=== PATIENT | male | born 1985 | race Caucasian/White ===

== ENCOUNTER 2021-11-11 19:08 | Emergency (ER) | payer BC, SELFPAY ==
[2021-11-11 19:17] VITALS: BP 157/85; PULSE 85; RESP 16; TEMP 36.5; O2SAT 98
--- NOTE | 2021-11-11 19:43 | ED.GENADULT ---
HPI - General Adult General Chief complaint: Arrhythmia/Palpitations Stated complaint: HEART FLUTTERING/L EARACHE Time Seen by Provider: 11/11/21 19:44 Source: patient and RN notes reviewed Mode of arrival: ambulatory Limitations: no limitations History of Present Illness HPI narrative: 36-year-old male presents with multiple complaints. He reports left ear pain, decreased hearing for approximately a week. He denies rhinorrhea, nasal congestion, sore throat. Reports he has been using Debrox without relief. In a separate complaint he reports having fluttering in his chest on and off. He denies any associated chest pain, shortness of breath, syncope or near syncope. MD complaint: Left earache, heart palpitations Related Data Allergies Allergy/AdvReac Type Severity Reaction Status Date / Time No Known Allergies Allergy Mild Verified 05/28/15 22:13 Review of Systems Review of Systems: CONSTITUTIONAL: Denies malaise, chills, sweats, or fever. EYES: Denies visual changes, redness, or discharge. ENT: Denies rhinorrhea, congestion, sinus pain, or sore throat.. Reports left ear pain CARDIOVASCULAR: Denies chest pain or edema. Ports intermittent heart fluttering RESPIRATORY: Denies cough or dyspnea. SKIN: Denies rash or itching. MUSCULOSKELETAL: Denies back pain or myalgia. NEUROLOGIC: Denies numbness, weakness, or headache. All systems reviewed & are unremarkable except as noted in HPI and below PMFSH Comments At time of signature, agree with nursing past medical, surgical, social and family history. There is no relevant family history pertinent to the presenting complaint Exam Narrative: GENERAL: Well-appearing, well-nourished, and in no acute distress. HEAD: Normocephalic EYES: PERRLA, conjunctivae clear ENT: Nares clear. Mucous membranes moist. TM not visible due to excessive cerumen; left tragal tenderness. NECK: Supple. No lymphadenopathy CHEST: Clear to auscultation, breath sounds equal. No wheezing, rhonchi, rales, or stridor. No respiratory distress, speaks in full sentences. HEART: Regular rate and rhythm. No murmur heard. SKIN: Warm, dry, no rash. NEURO: Alert and oriented x3. PSYCH: Normal mood and affect Course Course Emergency Course: Patient is aware of diagnosis, understands and agrees to treatment plan. Anticipatory guidance given. Patient agrees to follow-up as directed and is aware of reasons to seek care at the emergency department. Portions of this record may have been created with voice recognition software Vital Signs Vital signs: Reviewed. Procedures Ear Wax Removal Left Ear: Ear Wax Removal Date: 11/11/21 Ear Wax Removal Time: 19:50 Cerumenolytic Used: 5-10% Sodium Bicarb solution Results: Re-examined: cerumen removed completely TM Examination: TM(s) erythematous Ear Canal Exam: atraumatic Patient Tolerated Procedure: well Complications: no problems Technique: ear canal irrigated and ear canal curetted Additional Comments: TM erythematous and bulging Medical Decision Making ECG Data EKG #1: ECG completion date: 11/11/21 ECG completion time: 19:45 Prior ECG tracings: available for review Interpretation: Rate 67, OR normal 167, QRS duration 109, QT 368, QTc 384 EKG Interpretation: normal rate and sinus rhythm Critical Care Time Critical Care Time Critical Care Time: No Discharge Plan Discharge Clinical Impression: Otitis media Qualifiers: Otitis media type: suppurative Chronicity: acute Laterality: left Recurrence: non-recurrent Spontaneous tympanic membrane rupture: without spontaneous rupture Qualified Code(s): H66.002 - Acute suppurative otitis media without spontaneous rupture of ear drum, left ear Cerumen impaction Qualifiers: Laterality: left Qualified Code(s): H61.22 - Impacted cerumen, left ear Patient Disposition: Home, Self-Care Condition: Stable Instructions: Ear Infection (GEN)
--- NOTE | 2021-11-11 19:55 | ECG_ITS ---
Measurements Intervals [place] Rate: 67 P: 55 [place]: 167 QRS: -14 QRSD: 109 T: 39 QT: 368 QTc: 390 Interpretive Statements SINUS RHYTHM DELAYED PRECORDIAL R/S TRANSITION BORDERLINE ECG Electronically Signed On 11-11-2021 21:55:43 [employer]IOR [employer]ULT[employer] by Tucker Winkler D.O.
--- NOTE | 2021-11-11 20:14 | PC.NURSE ---
Left ear irrigated by [facility] without difficulty.
== END 2021-11-11 20:15 | disposition home or self-care (01) ==
PROVIDERS: Emergency Provider Nurse Practitioner
DX: H66.002 Acute suppurative otitis media without spontaneous rupture of ear drum, left ear (principal); H61.22 Impacted cerumen, left ear
CPT/HCPCS: 69210; 93005; 99203; A9270; G0463

== ENCOUNTER 2022-01-29 19:23 | Emergency (ER) | payer BC, SELFPAY ==
[2022-01-29 19:25] VITALS: BP 135/81; PULSE 91; RESP 16; TEMP 36.8; O2SAT 98
--- NOTE | 2022-01-29 19:25 | ED.EAR ---
HPI - Ear Problem General Chief complaint: Ear Stated complaint: R EARACHE Time Seen by Provider: 01/29/22 19:30 Source: patient, RN notes reviewed and old records reviewed Mode of arrival: ambulatory History of Present Illness HPI Narrative: 36-year-old male who presents to [facility] with complaints of ear pain to his right ear with decreased hearing for the past 2 days. Patient denies any drainage from his ears. Patient states that he feels like he is a little off balance since his ear is so clogged . Patient denies any sinus congestion drainage or any cough or shortness of breath. Patient denies any fevers chills or sweats. MD Complaint: ear pain and decreased hearing Location: right ear Related Data Home Medications Medication Instructions Recorded Confirmed fenofibrate mg 01/29/22 Allergies Allergy/AdvReac Type Severity Reaction Status Date / Time No Known Allergies Allergy Mild Verified 01/29/22 19:25 Review of Systems Review of Systems: CONSTITUTIONAL: Denies fever, chills, or sweats. EYES: Denies visual changes, redness, or discharge. ENT: Denies rhinorrhea, congestion, sore throat,positive for right ear pain and feeling of ear being clogged with decreased hearing.. CARDIOVASCULAR: Denies chest pain, palpitations, or edema. RESPIRATORY: Denies cough or dyspnea. GASTROINTESTINAL: Denies abdominal pain, nausea, vomiting, or diarrhea. GENITOURINARY: Denies dysuria or hematuria. SKIN: Denies rash or itching. MUSCULOSKELETAL: Denies back pain, joint pain, or myalgia. NEUROLOGIC: Denies headache, numbness, or weakness. PSYCHIATRIC: Denies anxiety or depression. All systems reviewed & are unremarkable except as noted in HPI and below [facility] Past Medical History Medical History (Updated 01/29/22 @ 19:55 by Ne Isaacs NP) Dislocation of right knee Elevated cholesterol Social History Social History (Updated 01/29/22 @ 20:01 by Ne Isaacs NP) Smoking packs per day: 1 Smoking cigarettes per day: 20.0 Smoking status: Current every day smoker Alcohol intake: current Alcohol use details: rare social Substance use type: does not use Living arrangements: with family Gender identity (if verbalized by the patient): Male Comments At time of signature, agree with nursing past medical, surgical, social and family history. There is no relevant family history pertinent to the presenting complaint Exam Narrative: GENERAL: Well-appearing, well-nourished, and in no acute distress. HEAD: Normocephalic, atraumatic. EYES: PERRLA and EOMI. ENT: Nares clear, no rhinorrhea or epistaxis. Mucous membranes moist.TM's completely occluded with ear wax, after cleansing with peroxide and water irrigation large amount of wax removed from right ear with moderate amount from left ear, Right ear canal red and excoriated TM's intact without redness or bulging, throat pink with no lesions or exudates no tonsil enlargment NECK: Supple. no lymphadenopathy CHEST: Clear to auscultation. No respiratory distress.SAO2 98% on room air HEART: Regular rate and rhythm. No murmur heard. Normal peripheral pulses. ABDOMEN: Soft, nontender, nondistended, normal active bowel sounds. EXTREMITIES: Normal range of motion. No edema. SKIN: Warm, dry, no rash. NEURO: No focal deficits. Alert and oriented x3. Course Course Level of Care: Express Care Visit Procedures Ear Wax Removal Both Ears: Ear Wax Removal Date: 01/29/22 Ear Wax Removal Time: 19:35 Cerumenolytic Used: 5-10% Sodium Bicarb solution Results: Re-examined: cerumen removed completely TM Examination: TM(s) intact, normal appearance Ear Canal Exam: other (right ear canal red and irritated with no drainage noted) Patient Tolerated Procedure: well Complications: no problems Technique: ear canal irrigated Additional Comments: Patient tolerated bilateral irrigation of ears using 5 to 10% sodium bicarb solu
== END 2022-01-29 19:52 | disposition home or self-care (01) ==
PROVIDERS: Emergency Provider Registered Nurse
DX: H60.91 Unspecified otitis externa, right ear (principal); H61.23 Impacted cerumen, bilateral; F17.210 Nicotine dependence, cigarettes, uncomplicated; E78.00 Pure hypercholesterolemia, unspecified
CPT/HCPCS: 69209; 99213; G0463

== ENCOUNTER 2024-08-16 16:56 | Emergency (ER) | payer BC, SELFPAY ==
[2024-08-16 17:08] VITALS: BP 142/76; PULSE 86; RESP 18; TEMP 37; O2SAT 99
[2024-08-16 17:18] VITALS: BP 142/76; PULSE 86; RESP 18; TEMP 37; O2SAT 99
--- NOTE | 2024-08-16 17:31 | ED.EAR ---
HPI - Ear Problem General Chief complaint: Ear Stated complaint: right ear Time Seen by Provider: 08/16/24 17:15 Source: patient Mode of arrival: ambulatory Limitations: no limitations History of Present Illness HPI Narrative: 39 yo M presents with c/o decreased hearing, ear throbbing for the past several days. all systems reviewed and negative except as noted above. Related Data Home Medications Medication Instructions Recorded Confirmed fenofibrate 160 mg tablet 160 mg PO DAILY 01/29/22 08/16/24 mecobalamin (vitamin B12) 08/16/24 pyridoxine (vitamin B6) 08/16/24 Allergies Allergy/AdvReac Type Severity Reaction Status Date / Time No Known Allergies Allergy Mild Verified 08/16/24 17:02 Review of Systems Review of Systems: CONSTITUTIONAL: Denies fever, chills, or sweats. EYES: Denies visual changes, redness, or discharge. ENT: Denies rhinorrhea, congestion, sore throat . Reports decreased hearing and ear pain. CARDIOVASCULAR: Denies chest pain, palpitations, or edema. RESPIRATORY: Denies cough or dyspnea. GASTROINTESTINAL: Denies abdominal pain, nausea, vomiting, or diarrhea. GENITOURINARY: Denies dysuria or hematuria. SKIN: Denies rash or itching. MUSCULOSKELETAL: Denies back pain, joint pain, or myalgia. NEUROLOGIC: Denies headache, numbness, or weakness. PSYCHIATRIC: Denies anxiety or depression. All other systems reviewed are negative, except as documented in HPI. [facility] Past Medical History Medical History (Updated 08/16/24 @ 17:29 by Elaine Cr NP) Dislocation of right knee Elevated cholesterol Social History Social History (Updated 01/29/22 @ 20:01 by Ne Isaacs NP) Smoking packs per day: 1 Smoking cigarettes per day: 20.0 Smoking status: Current every day smoker Alcohol intake: current Alcohol use details: rare social Substance use type: does not use Living arrangements: with family Gender identity (if verbalized by the patient): Male Comments At time of signature, agree with nursing past medical, surgical, social and family history. There is no relevant family history pertinent to the presenting complaint. Exam Narrative: GENERAL: This is a well-nourished, well-developed patient, in no apparent distress. HEAD: normocephalic, atraumatic. EYES: PERRL. Sclera clear/white. Vision is grossly intact. EARS: External ears normal, Bilateral ear canals impacted with cerumen NOSE: External nose normal NECK: Neck supple, non-tender without lymphadenopathy, masses or thyromegaly. CARDIOVASCULAR: Regular rate and rhythm without murmurs, gallops, or rubs. RESPIRATORY: Clear to auscultation. Breath sounds equal bilaterally. No wheezes, rales, or rhonchi. SKIN: warm, Dry, intact with no suspicious lesions or rash, good texture and turgor. NEURO: awake, alert, and oriented to person, place and time. There were no obvious focal neurologic abnormalities. EXTREMITIES: No joint tenderness, effusion, or edema noted. Course Course Level of Care: Express Care Visit Reevaluation(s) Reevaluation #1: bilateral ear canals irrigated with warm water. No erythema swelling to urine canals. TMs normal without perforation. Vital Signs Vital signs: Vital Signs Temperature 37.0 C 08/16/24 17:08 Pulse Rate 86 08/16/24 17:08 Respiratory Rate 18 08/16/24 17:08 Blood Pressure 142/76 H 08/16/24 17:08 Pulse Oximetry 99 08/16/24 17:08 Oxygen Delivery Room Air 08/16/24 17:08 Temperature 37.0 C 08/16/24 17:18 Pulse Rate 86 08/16/24 17:18 Respiratory Rate 18 08/16/24 17:18 Blood Pressure 142/76 H 08/16/24 17:18 Pulse Oximetry 99 08/16/24 17:18 Oxygen Delivery Room Air 08/16/24 17:18 Procedures Ear Wax Removal Both Ears: Ear Wax Removal Date: 08/16/24 Ear Wax Removal Time: 17:20 Cerumenolytic Used: other ( Warm water) Results: Re-examined: cerumen removed completely TM Examination
== END 2024-08-16 17:32 | disposition home or self-care (01) ==
PROVIDERS: Emergency Provider Nurse Practitioner Family
DX: H61.23 Impacted cerumen, bilateral (principal); F17.210 Nicotine dependence, cigarettes, uncomplicated
CPT/HCPCS: 69210; 99213; G0463

== ENCOUNTER 2025-04-27 11:50 | Emergency (ER) | payer BC, SELFPAY ==
--- OUTSIDE RECORDS SUMMARY | 2025-04-27 11:52 | XMS_ITS | Data Portability ---
Author Organization [place] [employer], Main Office Address [address] [place] [id number] Care Team Providers Care National Sales Director Name Role Phone BOBO MCDONNELL Primary Care Provider Assessment Encounter Date Assessment Date Assessment LastModified by Organization Details LastModified Time 02/02/2023 02/02/2023 D/w pt about his findings and further plan of care. Meds as directed. OTC symptomatic Rx explained in detail. Very good liquid intake explained. Proper hand hygiene explained. Educated about alarming symptoms to monitor at home and call us back Or get checked in ED if any concerns. F/u as directed. [email or web address] Not available 02/02/2023 15:26:52 03/04/2023 03/04/2023 38 yo M with - WELL ADULT VISIT - B/L CERUMEN IMPACTION - FATIGUE - VIT B12 DEFICIENCY - ED - OBESITY III - SNORING; R/o OSMAN CXR: 03/01/23. D/w pt in detail about his findings, recent labs & imagines and further plan of care. Will do routine labs. Meds as directed. Diet and exercise explained in detail. Educated about options for him. Currently smoking about 1 ppd. Encouraged pt to cut down and quit it. Advised to do sleep study; but pt declined. HM: Flu - Pt declined. Tdap, Gardasil - At pharmacy/HD. F/u in 2 weeks. B/l ear flushing on next visit. Annual labs in 03/08. [email or web address] Not available 03/04/2023 10:52:35 03/25/2023 03/25/2023 38 yo M with - B/L CERUMEN IMPACTION - HTG, uncontrolled - FATIGUE - VIT D DEFICIENCY - VIT B12 DEFICIENCY - ED - OBESITY III - SNORING; R/o OSMAN Annual labs: 03/23/23. CXR: 03/01/23. D/w pt in detail about his findings, recent labs & imagines and further plan of care. We haven't got other lab results yet. Meds as directed. Risks Vs benefits of Aspirin 81mg po QOD with food explained. Pt agreed. Diet and exercise explained in detail. Educated about options for him. Currently smoking about 1 ppd. Encouraged pt to cut down and quit it. Advised to do sleep study; but pt declined. HM: Flu - Pt declined. Tdap, Gardasil - At pharmacy/HD. F/u in 3 months. B/l ear flushing on next visit. Lipids in 07/07. Annual labs in 03/08. [email or web address] Not available 03/25/2023 10:36:53 Plan of Treatment Reminders Order Date Submit Date Provider Last Modified By Organization Details Last Modified Time Details Appointments None recorded. Lab lipid panel, serum 2022 023 [email or web address] [facility] (Lab), [address] [place], [address], 3 08:33:49 testosteron e, free + total, serum 2022 023 [facility] (Lab), [address] [place], [address], 3 15:09:01 CMP, serum or plasma 2022 023 [facility] (Lab), [address] [place], [address], 3 14:05:27 CBC w/ auto diff 2022 023 [facility] (Lab), [address] [place], [address], 3 14:01:18 lipid panel, blood 2022 023 [email or web address] [facility] (Lab), [address] [place], [address], 3 09:00:01 TSH, serum, reflex free T4 [address] (Lab), [address] [place], [address], 3 09:00:20 PSA, serum or plasma [address] (Lab), [address] [place], [address], 3 09:00:36 urinalysis complete, reflex culture [address] (Lab), [address] [place], [address], 3 09:00:54 magnesium, serum or plasma 2022 023 [facility] (Lab), [address] [place], [address], 3 14:07:12 vitamin D, 25-hydroxy, total, serum [address] (Lab), [address] [place], [address], 3 09:01:12 glycohemogl obin, total, blood 2022 023 [facility] (Lab), [address] [place], [address], 3 17:43:51 vitamin B12 + folate, serum or blood [address] (Lab), [address] [place], [address], 3 12:02:19 Referral None recorded. Procedures None recorded. Surgeries None recorded. Imaging XR, chest, 2 view 2022 023 [facility], [address] [place] [address] , [place], [address], 3 17:00:27 Medication Orders fenofibrate 160 mg tablet 2022 023 [facility][id number], [address], [place], [place], [id number], 3 10:27:07 ergocalcife rol (vitamin D2) 1,250 mcg (50,000 unit) capsule 2022 023 [facility][id number], [address], [place], [id number], 3 10:27:06 nicotine 21 mg/24 hr daily transdermal patch 2022 023 [facility] #[id number], [address], [place], [place], [id number], 3 10:28:04 azithromyci n 250 mg tablet [address] [id number], [address], [place], [id number], 3 10:24:38 Medrol (Braxton) 4 mg tablets in a dose pack [address] [facility]126, [address], [place], [id number], 3 10:24:46 albuterol sulfate HFA 90 mcg/actuati on aerosol inhaler 2022 023 [facility][id number], [address], [place], [id number], 3 15:13:44 sildenafil 50 mg tablet 2022 023 [facility]59893, [address], [place], [place], [id number], 3 15:13:47 benzonatate 200 mg capsule 2022 023 [email or web address] [facility]64166, [address], [place], [place], [id number], 3 10:24:41 Patient TargetsNo targets recorded. Patient Instructions Encounter Date Encounter Id Patient Instructions Last Modified By Organization Details Last Modified Time 03/04/2023 [id number] When You Want to Lose Weight: Care Instructions [email or web address] Not available 03/04/2023 10:29:50 starting a weigh t loss plan: care instructions [email or web address] Not available 03/04/2023 10:29:50 03/25/2023 [id number] When You Want to Lose Weight: Care Instructions Not available 03/25/2023 10:22:31 starting a weigh t loss plan: care instructions [email or web address] Not available 03/25/2023 10:22:31 Reason for Referral None Reported. Results Created Date Observation Date Name Description Value Unit Range Abnormal Flag Note LastModifiedBy Organization Detail LastModifiedTime 09/17/2009/17/2022 urina lysis , dipst ick Leukocytes (reference range: negative tenzin/ l) Negati ve Not Available [facility] [address], [address], [address], 09/17/2022 12:03:57 09/17/2009/17/2022 urina lysis , dipst ick Nitrite (reference rage: negative mg/dl) negati ve Not Available [facility] [address], [address], [address], 09/17/2022 12:03:57 09/17/20 22 09/17/2022 urina lysis , dipst ick Urobilinogen (reference range: 0.2-1 mg/dl) 0.2 Not Available [address], [address], 09/17/2022 12:03:57 09/17/20 22 09/17/2022 urina lysis , dipst ick Protein (reference range: negative mg/dl) Negati ve Not Available [address], [address], 09/17/2022 12:03:57 09/17/20 22 09/17/2022 urina lysis , dipst ick pH (reference range: 5-7) 5.5 Not Available [address], [address], 09/17/2022 12:03:57 09/17/20 22 09/17/2022 urina lysis , dipst ick Blood (reference range: negative Sammy/ l) Negati ve Not Available [address], [address], 09/17/2022 12:03:57 09/17/20 22 09/17/2022 urina lysis , dipst ick Specific [place] (reference range: 1.005-1.030) 1.030 Not Available [address], [address], 09/17/2022 12:03:57 09/17/20 22 09/17/2022 urina lysis , dipst ick Ketone (reference range: negative mg/dl) Negati ve Not Available [facility] [address] [place] [address], [address], 09/17/2022 12:03:57 09/17/20 22 09/17/2022 urina lysis , dipst ick Bilirubin (reference range: negative mg/dl) Negati ve Not Available [address], [address], 09/17/2022 12:03:57 09/17/20 22 09/17/2022 urina lysis , dipst ick Glucose (reference range: negative mg/dl) Negati ve Not Available [address], [address], 09/17/2022 12:03:57 09/17/20 22 09/17/2022 urina lysis , dipst ick Appearance Clear Not Available [address], [address], 09/17/2022 12:03:57 09/17/20 22 09/17/2022 urina lysis , dipst ick Color Yellow Not Available [address], [address], 09/17/2022 12:03:57 03/23/20 23 03/23/2023 CBC/C OMPLE TE BLD COUNT W/DIF F white blood cells 10.6 x10'3 /uL 4.2-10 .8 Not Available [facility] ([facility]) [address] [place] [address], [address], 03/23/2023 14:01:18 05/0903/23/2023 CBC/C OMPLE TE BLD COUNT W/DIF F red blood cells 4.86 x10'6 /uL 4.10-5 .80 Not Available [facility] (Lab) [address] [place], [address], 03/23/2023 14:01:18 03/23/20 23 03/23/2023 CBC/C OMPLE TE BLD COUNT W/DIF F hemoglobin 14.4 g/dL 13.2-1 7.0 Not Available [facility] (Lab) [address] [place], [address], 03/23/2023 14:01:18 03/23/2003/23/2023 CBC/C OMPLE TE BLD COUNT W/DIF F hematocrit 42.7 % 39.3-5 0.0 Not Available [facility] (Lab) [address] [place], [address], 03/23/2023 14:01:18 03/23/2003/23/2023 CBC/C OMPLE TE BLD COUNT W/DIF F mean red cell volume 87.9 fL 80.0-9 7.0 Not Available [facility] (Lab) [address] [place], [address], 03/23/2023 14:01:18 03/23/2003/23/2023 CBC/C OMPLE TE BLD COUNT W/DIF F mean red cell hemoglobin 29.6 pg 27.0-3 3.0 Not Available [facility] (Lab) [address] [place], [address], 03/23/2023 14:01:18 03/23/2003/23/2023 CBC/C OMPLE TE BLD COUNT W/DIF F mean RBC HGB concentratio n 33.7 g/dL 31.0-3 6.0 Not Available [facility] (Lab) [address] [place], [address], 03/23/2023 14:01:18 03/23/20 23 03/23/2023 CBC/C OMPLE TE BLD COUNT W/DIF F red cell distribution width 12.5 % 11.8-1 5.5 Not Available [facility] (Lab) [address] [place], [address], 03/23/2023 14:01:18 03/23/20 23 03/23/2023 CBC/C OMPLE TE BLD COUNT W/DIF F platelets 253 x10'3 /uL 150-40 0 Not Available [facility] (Lab) [address] [place], [address], 03/23/2023 14:01:18 03/23/2003/23/2023 CBC/C OMPLE TE BLD COUNT W/DIF F mean platelet volume 11.2 fL 9.0-12 .4 Not Available [facility] (Lab) [address] [place], [address], 03/23/2023 14:01:18 03/23/2003/23/2023 CBC/C OMPLE TE BLD COUNT W/DIF F neutrophils 57.3 % 39.0-7 2.0 Not Available [facility] (Lab) [address] [place], [address], 03/23/2023 14:01:18 03/23/2003/23/2023 CBC/C OMPLE TE BLD COUNT W/DIF F lymphocytes 31.6 % 16.0-4 7.0 Not Available [facility] (Lab) [address] [place], [address], 03/23/2023 14:01:18 03/23/2003/23/2023 CBC/C OMPLE TE BLD COUNT W/DIF F monocytes 10.0 % 5.0-12 .0 Not Available [facility] (Lab) [address] [place], [address], 03/23/2023 14:01:18 03/23/20 23 03/23/2023 CBC/C OMPLE TE BLD COUNT W/DIF F eosinophils 0.1 % 1.0-7. 0 low Not Available [facility] (Lab) [address] [place], [address], 03/23/2023 14:01:18 03/23/20 23 03/23/2023 CBC/C OMPLE TE BLD COUNT W/DIF F basophils 0.2 % 0.0-2. 0 Not Available [facility] (Lab) [address] [place], [address], 03/23/2023 14:01:18 03/23/2003/23/2023 CBC/C OMPLE TE BLD COUNT W/DIF F immature granulocytes 0.8 % 0.00-0 .50 high Not Available [facility] (Lab) [address] [place], [address], 03/23/2023 14:01:18 03/23/20 23 03/23/2023 CBC/C OMPLE TE BLD COUNT W/DIF F neutrophils, absolute count 6.07 x10'3 /uL 1.5-8. 0 Not Available [facility] (Lab) [address] [place], [address], 03/23/2023 14:01:18 03/23/2003/23/2023 CBC/C OMPLE TE BLD COUNT W/DIF F lymphocytes, absolute count 3.34 x10'3 /uL 1.07-3 .43 Not Available [facility] (Lab) [address] [place], [address], 03/23/2023 14:01:18 03/23/2003/23/2023 CBC/C OMPLE TE BLD COUNT W/DIF F monocytes, absolute count 1.06 x10'3 /uL 0.29-0 .99 high Not Available [facility] (Lab) [address] [place], [address], 03/23/2023 14:01:18 03/23/20 23 03/23/2023 CBC/C OMPLE TE BLD COUNT W/DIF F eosinophils, absolute count 0.01 x10'3 /uL 0.02-0 .53 low Not Available [facility] (Lab) [address] [place], [address], 03/23/2023 14:01:18 03/23/20 23 03/23/2023 CBC/C OMPLE TE BLD COUNT W/DIF F basophils, absolute count 0.02 x10'3 /uL 0.01-0 .08 Not Available [facility] (Lab) [address] [place], [address], 03/23/2023 14:01:18 03/23/20 23 03/23/2023 CBC/C OMPLE TE BLD COUNT W/DIF F immature granulocytes ,absolute 0.08 x10'3 /uL 0.00-0 .05 high Not Available [facility] (Lab) [address] [place], [address], 03/23/2023 14:01:18 03/23/20 23 03/23/2023 CBC/C OMPLE TE BLD COUNT W/DIF F nucleated red blood cells 0.0 % -0 Not Available [facility] (Lab) [address] [place], [address], 03/23/2023 14:01:18 03/23/20 23 03/23/2023 CBC/C OMPLE TE BLD COUNT W/DIF F NRBC# 0.00 x10'3 /uL Not Available [facility] (Lab) [address] [place], [address], 03/23/2023 14:01:18 03/23/20 23 03/23/2023 COMPR EHENS GREG METAB OLIC PANEL sodium 136 mmol/ L 137-14 5 low Not Available [facility] (Lab) [address] [place], [address], 03/23/2023 14:05:26 03/23/20 23 03/23/2023 COMPR EHENS GREG METAB OLIC PANEL potassium 4.5 mmol/ L 3.5-5. 1 Not Available [facility] (Lab) [address] [place], [address], 03/23/2023 14:05:26 03/23/20 23 03/23/2023 COMPR EHENS GREG METAB OLIC PANEL chloride 104 mmol/ L 98-107 Not Available [facility] (Lab) [address] [facility] [place], [address], 03/23/2023 14:05:26 03/23/20 23 03/23/2023 COMPR EHENS GREG METAB OLIC PANEL carbon dioxide 20 mmol/ L 22-30 low Not Available [facility] (Lab) [address] [place], [address], 03/23/2023 14:05:26 03/23/20 23 03/23/2023 COMPR EHENS GREG METAB OLIC PANEL anion gap 16.5 mmol/ L 14-22 Not Available [facility] (Lab) [address] [place], [address], 03/23/2023 14:05:26 03/23/20 23 03/23/2023 COMPR EHENS GREG METAB OLIC PANEL glucose 106 mg/dL 70-99 high Not Available [facility] (Lab) [address] [place], [address], 03/23/2023 14:05:26 03/23/20 23 03/23/2023 COMPR EHENS GREG METAB OLIC PANEL BUN 9 mg/dL 8-19 Not Available [facility] (Lab) [address] [place], [address], 03/23/2023 14:05:26 03/23/20 23 03/23/2023 COMPR EHENS RGEG METAB OLIC PANEL creatinine 0.62 mg/dL 0.66-1 .25 low Not Available [facility] (Lab) [address] [place], [address], 03/23/2023 14:05:26 03/23/20 23 03/23/2023 COMPR EHENS GREG METAB OLIC PANEL GFR >60 Refer ence Range : [place] ge GFR Healt hy Adult : >60 mL/mi n/1.7 3 m2 Chron ic Kidne y Disea se: 15-60 mL/mi n/1.7 3 m2 Kidne y Failu re: <15/m L/min /1.73 m2 www.n iddk. nih.g ov The MDRD study equat ion has not been valid ated in child calista <18 years of age; pregn ant women ; the elder ly >85 years of age; or in some racia l or ethni c subgr oups, such as Hisnj nics. Outsi de the valid ated erin eters , estim ated GFR is less accur ate, requi ring clini nadira judgm ent on a case- by-ca se basis . Clini nadira inter preta tion for other races and ages must be made by the clini foreign. The MDRD study equat ion has not been valid ated for the evalu ation of serum creat inine relat ed to nutri allen l statu s or medic ation usage . For perso ns <18 years of age, a pedia tric GFR calcu lator is avail able on the [facility] websi te: https ://ww w.kid suzanne.o rg/pr ofess ional s/kdo qi/gf r_cal culat or Not Available [facility] (Lab) [address] [place], [address], 03/23/2023 14:05:26 03/23/20 23 03/23/2023 COMPR EHENS GREG METAB OLIC PANEL alkaline phosphatase 62 U/L 38-[address] [facility] (Lab) [address] [place], [address], 03/23/2023 14:05:26 03/23/20 23 03/23/2023 COMPR EHENS GREG METAB OLIC PANEL alanine aminotransfe rase 29 U/L 0-50 Not Available [facility] (Lab) [address] [place], [address], 03/23/2023 14:05:26 03/23/20 23 03/23/2023 COMPR EHENS GREG METAB OLIC PANEL aspartate aminotransfe rase 30 U/L 15-46 Not Available [facility] (Lab) [address] [place], [address], 03/23/2023 14:05:26 03/23/20 23 03/23/2023 COMPR EHENS GREG METAB OLIC PANEL bilirubin, total 0.70 mg/dL 0.20-1 .30 Not Available [facility] (Lab) [address] [place], [address], 03/23/2023 14:05:26 03/23/20 23 03/23/2023 COMPR EHENS GREG METAB OLIC PANEL calcium 9.4 mg/dL 8.4-10 .2 Not Available [facility] (Lab) [address] [place], [address], 03/23/2023 14:05:26 03/23/20 23 03/23/2023 COMPR EHENS GREG METAB OLIC PANEL total protein 6.6 g/dL 6.3-8. 2 Not Available [facility] (Lab) [address] [place], [address], 03/23/2023 14:05:26 03/23/20 23 03/23/2023 COMPR EHENS GREG METAB OLIC PANEL albumin 4.0 g/dL 3.4-5. 0 Not Available [facility] (Lab) [address] [place], [address], 03/23/2023 14:05:26 03/23/20 23 03/23/2023 COMPR EHENS GREG METAB OLIC PANEL globulin 2.6 g/dL 2.6-4. 2 Not Available [facility] (Lab) [address] [place], [address], 03/23/2023 14:05:26 03/23/20 23 03/23/2023 COMPR EHENS GREG METAB OLIC PANEL A/G ratio 1.5 ratio 1.0-2. 0 Not Available [facility] (Lab) [address] [place], [address], 03/23/2023 14:05:26 03/23/20 23 03/23/2023 MAGNE SIUM magnesium 1.8 mg/dL 1.6-2. 3 Not Available [facility] (Lab) [address] [place], [address], 03/23/2023 14:07:12 03/23/20 23 03/23/2023 VITAM IN D 25-HY DROXY [id number] 21.0 NG/mL 30-100 low Vitam in D Statu s: Defic ient: <20 ng/mL Insuf ficie nt: 20-29 ng/mL Suffi cient : 30-10 0 ng/mL Not Available [facility] (Lab) [address] [place], [address], 03/23/2023 14:22:28 03/23/20 23 03/23/2023 URINA LYSIS COMPL ETE/I RIS W/RFX color YELLOW Not Available [facility] (Lab) [address] [place], [address], 03/23/2023 14:22:43 03/23/20 23 03/23/2023 URINA LYSIS COMPL ETE/I RIS W/RFX appear CLEAR Not Available [facility] (Lab) [address] [place], [address], 03/23/2023 14:22:43 03/23/20 23 03/23/2023 URINA LYSIS COMPL ETE/I RIS W/RFX specific gravity 1.021 1.001- 1.030 Not Available [facility] (Lab) [address] [place], [address], 03/23/2023 14:22:43 03/23/20 23 03/23/2023 URINA LYSIS COMPL ETE/I RIS W/RFX pH 5.0 pH_un its 5.0-9. 0 Not Available [facility] (Lab) [address] [place], [address], 03/23/2023 14:22:43 03/23/20 23 03/23/2023 URINA LYSIS COMPL ETE/I RIS W/RFX leukocytes NEGATI VE tenzin/u L negati ve- Not Available [facility] (Lab) [address] [place], [address], 03/23/2023 14:22:43 03/23/20 23 03/23/2023 URINA LYSIS COMPL ETE/I RIS W/RFX nitrite NEGATI VE negati ve- Not Available [facility] (Lab) [address] [place], [address], 03/23/2023 14:22:43 03/23/20 23 03/23/2023 URINA LYSIS COMPL ETE/I RIS W/RFX protein 10 mg/dL negati ve- abnormal Not Available [facility] (Lab) [address] [place], [address], 03/23/2023 14:22:43 03/23/20 23 03/23/2023 URINA LYSIS COMPL ETE/I RIS W/RFX glucose NORMAL mg/dL normal - Not Available [facility] (Lab) [address] [place], [address], 03/23/2023 14:22:43 03/23/20 23 03/23/2023 URINA LYSIS COMPL ETE/I RIS W/RFX ketones NEGATI VE mg/dL negati ve- Not Available [facility] (Lab) [address] [place], [address], 03/23/2023 14:22:43 03/23/20 23 03/23/2023 URINA LYSIS COMPL ETE/I RIS W/RFX urobilinogen NORMAL mg/dL normal - Not Available [facility] (Lab) [address] [place], [address], 03/23/2023 14:22:43 03/23/20 23 03/23/2023 URINA LYSIS COMPL ETE/I RIS W/RFX bilirubin NEGATI VE mg/dL negati ve- Not Available [facility] (Lab) [address] [facility] [place], [address], 03/23/2023 14:22:43 03/23/20 23 03/23/2023 URINA LYSIS COMPL ETE/I RIS W/RFX blood NEGATI VE mg/dL negati ve- Not Available [facility] (Lab) [address] [place], [address], 03/23/2023 14:22:43 03/23/20 23 03/23/2023 URINA LYSIS COMPL ETE/I RIS W/RFX white blood cells 0-8 /i??h pfi?? 0-8 Not Available [facility] (Lab) [address] [place], [address], 03/23/2023 14:22:43 03/23/20 23 03/23/2023 URINA LYSIS COMPL ETE/I RIS W/RFX red blood cells 0-4 /i??h pfi?? 0-4 Not Available [facility] (Lab) [address] [place], [address], 03/23/2023 14:22:43 03/23/2003/23/2023 URINA LYSIS COMPL ETE/I RIS W/RFX bacteria NONE Not Available [facility] (Lab) [address] [place], [address], 03/23/2023 14:22:43 03/23/20 23 03/23/2023 URINA LYSIS COMPL ETE/I RIS W/RFX mucous FEW /i??l pfi?? abnormal Not Available [facility] (Lab) [address] [place], [address], 03/23/2023 14:22:43 03/23/20 23 03/23/2023 URINA LYSIS COMPL ETE/I RIS W/RFX squamous epithelial OCCASI ONAL /i??l pfi?? abnormal Not Available [facility] (Lab) [address] [place], [address], 03/23/2023 14:22:43 03/23/20 23 03/23/2023 LIPID PANEL cholesterol 179 mg/dL 140-19 9 NIH EUGENE NSUS RECOM MENDA TION FOR GEETHA STERO L: ADULT CHILD LOW RISK: <200 <170 BORDE RLINE : <200- 239 ----- HIGH RISK: >240 >200 Not Available [facility] (Lab) [address] [place], [address], 03/23/2023 14:23:29 03/23/2003/23/2023 LIPID PANEL triglyceride s 367 mg/dL 0-150 high NIH EUGENE NSUS REPOR T RECOM MENDA TION FOR TRIGL YCERI ELIZA: ADULT CHILD LOW RISK: <150 ----- BODER LINE: 150-1 99 ----- HIGH RISK: >200 ----- Not Available [facility] (Lab) [address] [place], [address], 03/23/2023 14:23:29 03/23/20 23 03/23/2023 LIPID PANEL HDL cholesterol 24 mg/dL 40- low Not Available [facility] (Lab) [address] [place], [address], 03/23/2023 14:23:29 03/23/2003/23/2023 LIPID PANEL LDL cholesterol, calculated 82 mg/dL 0-130 NIH EUGENE NSUS REPOR T RECOM MENDA TIONS FOR LDL: ADULT CHILD LOW RISK <130 <110 (OPTI MAL LDL) <100 ----- BORDE RLINE : 130-1 59 ----- HIGH RISK: >160 >130 A TRIGL YCERI DE RESUL T >400 INVAL IDATE S THE CALCU LATIO N FOR LDL FRACT IONAT ION - THE LDL RESUL T WILL NOT BE REPOR CHAUNCEY. Not Available [facility] (Lab) [address] [place], [address], 03/23/2023 14:23:29 03/23/20 23 03/23/2023 TSH W/REF ALLEN FT4 TSH with reflex free T4 0.840 uIU/m L 0.465- 4.680 Not Available [facility] (Lab) [address] [place], [address], 03/23/2023 14:39:07 03/23/20 23 03/23/2023 PSA, TOTAL PSA, total 0.46 NG/mL 0.00-4 .00 Not Available [facility] (Lab) [address] [place], [address], 03/23/2023 14:39:11 03/23/20 23 03/23/2023 HEMOG LOBIN A1C HA1C 5.5 % 4.0-6. 0 Diabe gi Scree crystal Crite enedelia: <5.7% Consi stent with absen ce of diabe gi 5.7-6 .4% Consi stent with incre ased risk for diabe gi (pred iabet es) >OR=6 .5% Consi stent with diabe gi REFER ENCE: Diabe gi Care 2016, 39(Rosas ppl.1 ):s13 -s22 Not Available [facility] (Lab) [address] [place], [address], 03/23/2023 17:43:51 03/23/20 23 03/27/2023 TESTO STERO NE, FREE+ TOTAL LC/MS testosterone , total, lc/MS 272.9 NG/dL 264.0- 916.0 This [facility] rp LC/MS -MS metho d is curre ntly certi fied by the CDC Hormo ne Stand ardiz ation Progr am (HoSt ). Adult male refer ence inter alea is based on a popul ation of healt hy nonob ailyn males (BMI <30) betwe en 19 and 39 years old. Lokesh green, et.al . JCEM 2017, 102;1 161-1 173. PMID: 65296 103. Not Available [facility] (Lab) [address] [place], [address], 03/27/2023 15:09:01 03/23/20 23 03/27/2023 TESTO STERO NE, FREE+ TOTAL LC/MS testosterone , free 4.75 NG/dL 5.00-2 1.00 low Not Available [facility] (Lab) [address] [place], [address], 03/27/2023 15:09:01 03/23/20 23 03/27/2023 TESTO STERO NE, FREE+ TOTAL LC/MS % free testosterone 1.74 % 1.50-4 .20 Perfo rmed at: [facility] [email or web address] [facility] [place] [address] Lab Direc tor: Monica felix MD, Phone : [phone] Not Available [facility] (Lab) [address] [place], [address], 03/27/2023 15:09:01 09/25/20 22 09/24/2022 CT, abdom en + pelvi s, w/o contr ast No observ ation record ed. [id number] [facility] Add On Lab Orders [address] [place], [address], 01/13/2023 23:10:35 03/01/20 23 XR, chest , 2 view [facility] [address] [facility] [place] [address] [phone] Trinidad escalante Name: VANCE VEGA Access ion #: [id number] Sex: M : 1984 5 Locati on: RA2 Attend ing Physic chelsey: DORA MCDONNELL Orderi renae Physic chelsey: DORA MCDONNELL Exam Date: 9:17 AM Exam Name: XR CHEST 2V Admitt ing Diagno sis(es ): RADIOL OGY REPORT - FINAL EXAM: XR CHEST 2V HISTOR Y: smoker chroni c cough COMPAR KIKA: None. TECHNI QUE: Two views of the chest were perfor med. FINDIN GS: No pneumo thorax , consol idativ e infilt rates, pleura l effusi ons, or pulmon vadim edema. The heart is not enlarg ed. IMPRES JACKELIN: Unrema rkable 2 view chest. Page 1 of 2 [facility] Trinidad escalante Name: VANCE VEGA Access ion #: [id number] Sex: M : 1984 5 Exam Date: 9:17 AM Exam Name: XR CHEST 2V Admitt ing Diagno sis(es ): Create d and electr onical ly signed by: Ralph wilcox MD Signed Date: 3:57 PM (CT) Dictat ed by: Ralph wilcox MD DD: 3:57 PM (CT) DT: 3:57 PM (CT) Page 2 of 2 [email or web address] [facility] (Imaging) [address] [place] [address], [address], 03/04/2023 10:22:35 Result Notes Documentation Provider Name and Address Organization Details Recorded Time Xr, Chest, 2 View : [facility] [address] [place] [address] Patient Name: MANA SAUCEDO Sex: M : 1985 Location: [facility] Attending Physician: BOBO MCDONNELL Ordering Physician: BOBO MCDONNELL Exam Date: 03/01/2023 9:17 AM Exam Name: XR CHEST 2V Admitting Diagnosis(es): RADIOLOGY REPORT - FINAL EXAM: XR CHEST 2V HISTORY: smoker chronic cough COMPARISON: None. TECHNIQUE: Two views of the chest were performed. FINDINGS: No pneumothorax, consolidative infiltrates, pleural effusions, or pulmonary edema. The heart is not enlarged. IMPRESSION: Unremarkable 2 view chest. Page 1 of 2 [facility] Patient Name: MANA SAUCEDO Sex: M : 1985 Exam Date: 03/01/2023 9:17 AM Exam Name: XR CHEST 2V Admitting Diagnosis(es): Created and electronically signed by: Ralph King MD Signed Date: 03/01/2023 3:57 PM (CT) Dictated by: Ralph King MD (CT) (CT) Page 2 of 2 Bobo Mcdonnell MD [address], [address], [facility] [employer] [facility] 03/04/2023 10:22:35 Problems Name Problem SNOMED Code Status Onset Date Resolution Date Notes Provider Name and Address Organization Details Recorded Time Serum vitamin B12 below reference range 412002071 Active 2020 Not Available [employer] 3 23:08:07 Hypertrigl yceridemia 590545610 Active 2020 Not Available [facility] 3 23:08:07 Blood in urine 57821994 Active 2020 Not Available [facility] 3 23:08:07 Obesity 962888121 Active 2021 Not Available [facility] 3 23:08:07 History of calculus of kidney 175616957 Active 2020 Not Available [facility] 3 23:08:07 Smoker 85686510 Active 2021 Not Available [facility] 3 23:08:07 Vitamin B12 deficiency (non anemic) 50157901 Active 2022 Bobo Mcdnonell MD [address], [place], [address] , [email or web address] 3 15:06:50 Cough 26543894 Active 2022 Bobo Mcdonnell MD [address], [place], [address] , [employer] 3 15:07:12 Erectile dysfunctio n 823602950 Active 2022 Bobo Mcdonnell MD [address], [place], [address] , [email or web address] 3 15:08:06 Bronchitis 75596427 Active 2022 Bobo Mcdonnell MD [address], [place], [address] , [employer] 3 15:10:31 Fatigue 99034304 Active 2022 Bobo Mcdonnell MD [address], [place], [address] , [employer] 3 15:27:11 Impacted cerumen of bilateral ears 4085068157778 108 Active 2022 Bobo Mcdonnell MD [address], [place], [address] , [employer] 3 10:25:51 Vitamin D deficiency 46055117 Active 2022 Bobo Mcdonnell MD [address], [place], [address] , [employer] 3 10:25:56 Problem Notes None recorded. Procedures Surgical History Date Name Laterality Status Provider Name and Address Organization Details Recorded Time 3 Smoking Cessation completed Bobo Mcdonnell MD [address], [place], [address], [facility] [employer] [facility] 03/04/2023 10:23:08 3 Smoking Cessation completed Bobo Mcdonnell MD [address], [place], [address], [facility] [employer] [facility] 02/02/2023 15:22:12 Imaging Results None recorded. Procedure Notes None recorded. Medical Equipment None Reported. Allergies No known drug allergies Medications Name Sig Start Date Stop Date Status Note LastModified by Organization Details LastModified Time cyclobenzap rine 10 mg tablet active Not Available Not Available Not Available clindamycin HCl 300 mg capsule 04/29 completed Not Available Not Available Not Available sildenafil 50 mg tablet Take 1 tablet as needed by oral route as directed for 30 days. 2022 active Not Available Not Available Not Avai lable azithromyci n 250 mg tablet TAKE 2 TABLETS BY MOUTH ON DAY 1 AND THEN TAKE 1 TABLET BY MOUTH ONCE A DAY ON DAY 2 THROUGH DAY 5 03/04 completed Not Available Not Available Not Available Lidocaine Viscous 2 % mucosal solution PLACE 5 MILLILITE RS BY MUCOUS MEMBRANE ROUTE 4 TIMES PER DAY NEEDED 04/29 completed Not Available Not Available Not Available benzonatate 200 mg capsule TAKE 1 CAPSULE BY MOUTH EVERY 8 HOURS FOR 7 DAYS NEEDED 03/04 completed Not Available Not Available Not Available penicillin V potassium 500 mg tablet TAKE 1 TABLET BY MOUTH THREE TIMES DAILY FOR 10 DAYS 04/29 completed Not Available Not Available Not Available sulfamethox azole 800 mg-trimetho prim 160 mg tablet TAKE 1 TABLET BY MOUTH EVERY 12 HOURS 02/02 completed Not Available Not Available Not Available tramadol 50 mg tablet 04/29 completed Not Available Not Available Not Available amoxicillin 875 mg tablet TAKE 1 TABLET BY MOUTH EVERY 12 HOURS FOR 10 DAYS 02/02 completed Not Available Not Available Not Available cyanocobala min (vit B-12) 1,000 mcg/mL injection solution Inject 1ml subcutane ously weekly x 4 weeks, then monthly active Not Available Not Available No t Available nicotine 21 mg/24 hr daily transdermal patch Apply 1 patch every day by transderm al route as directed for 30 days. active Not Available Not Available No t Available ergocalcife rol (vitamin D2) 1,250 mcg (50,000 unit) capsule TAKE 1 CAPSULE BY MOUTH ONCE A WEEK DIRECTED active Not Available Not Available No t Available ibuprofen 600 mg tablet TAKE 1 TABLET BY MOUTH EVERY 6 HOURS WITH FOOD NEEDED active Not Available Not Available No t Available methylpredn isolone 4 mg tablets in a dose pack TAKE BY MOUTH DIRECTED FOR 6 DAYS 03/04 completed Not Available Not Available Not Available albuterol sulfate HFA 90 mcg/actuati on aerosol inhaler INHALE 2 PUFFS BY MOUTH EVERY 6 HOURS FOR 10 DAYS NEEDED active Not Available Not Available No t Available fluticasone propionate 50 mcg/actuati on nasal spray,suspe nsion SHAKE LIQUID AND USE 1 SPRAY IN EACH NOSTRIL EVERY 12 HOURS NEEDED active Not Available Not Available No t Available BD SafetyGlide Insulin Syringe 1 mL 29 gauge x 1/2 USE DIRECTED WITH B12 active Not Available Not Available No t Available fenofibrate 160 mg tablet TAKE 1 TABLET BY MOUTH EVERY DAY DIRECTED 2022 active Not Available Not Available Not Avai lable Vitals Date Recorded Respiratory rate Heart rate Provider Shoaib hutchinson and Address Organization Details Last Updated DateTime 02/02/2023 16 /min 86 /min Bobo Mcdonnell MD [address], [facility] [address], [place], [address], [facility] [employer] 02/02/2023 15:20:27 Date Recorded Body height Body mass index (BMI) Body weight Body temperature Oxygen saturation Oxygen saturation in Arterial blood by Pulse oximetry Systolic blood pressure Diastolic blood pressure Provider Name and Address Organization Details Last Updated DateTime 3 185.42 cm 41.4 kg/m2 641396 g 97.9 [degF] 98 % 98 % 142 mm[Hg] 78 mm[Hg] Elaine Sanabria RN [facility] [employer] 3 15:03:09 Date Recorded Body height Body mass index (BMI) Body weight Body temperature Heart rate Oxygen saturation Oxygen saturation in Arterial blood by Pulse oximetry Respiratory rate Systolic blood pressure Diastolic blood pressure Provider Name and Address Organization Details Last Updated DateTime 3 185.42 cm 41 kg/m2 870376. 23 g 97.7 [degF] 96 /min 98 % 98 % 16 /min 130 mm[Hg] 74 mm[Hg] MICAH Drummond - [facility] [employer] 3 10:18:54 Date Recorded Body height Body mass index (BMI) Body weight Body temperature Heart rate Oxygen saturation Oxygen saturation in Arterial blood by Pulse oximetry Respiratory rate Systolic blood pressure Diastolic blood pressure Provider Name and Address Organization Details Last Updated DateTime 3 185.42 cm 41.3 kg/m2 483772. 41 g 97.5 [degF] 88 /min 98 % 98 % 16 /min 128 mm[Hg] 82 mm[Hg] MIC[facility] Drum[facility] [place] [employer] 3 10:20:45 Social History Question Answer Notes LastModified by Organization Details LastModified Time Tobacco Smoking Status Current Every Day Smoker Not Available [facility] 01/13/2023 23:05:44 Do You Have An Advance Directive? No [email or web address] Information not available 02/02/2023 What Is Your Level Of Caffeine Consumption? Heavy [id number] [id number] Information not available 01/13/2023 How Much Tobacco Do You Chew? None [id number].0301 [id number] Information not available 01/13/2023 What Type Of Diet Are You Following? REGULAR Information not available 02/02/2023 Which Illicit Or Recreational Drugs Have You Used? None [id number] [id number] Information not available 01/13/2023 What Is The Highest Grade Or Level Of School You Have Completed Or The Highest Degree You Have Received? [id number] [email or web address] Information not available 02/02/2023 Have There Been Any Changes To Your Family Or Social Situation? Yes Just [email or web address] Information not available 02/02/2023 Do You Use Insect Repellent Routinely? Yes [email or web address] Information not available 02/02/2023 Where Do You Live? SingleLevelHouse [email or web address] Information not available 02/02/2023 Do You Have A Medical Power Of Office Director? No [email or web address] Information not available 02/02/2023 What Was The Date Of Your Most Recent Tobacco Screening? 09/17/2022 [id number].0301 [id number] Information not available 01/13/2023 Do You Have Any Pets? Yes 3 Cats And Dog [email or web address] Information not available 02/02/2023 What Is Your Relationship Status? [email or web address] Information not available 02/02/2023 Do You Use Your Seat Belt Or Car Seat Routinely? Yes Information not available 02/02/2023 Do You Have Smoke And Carbon Monoxide Detectors In Your Home? Yes [email or web address] Information not available 02/02/2023 At What Age Did You Start Smoking Tobacco? 20 [id number].0301 [id number] Information not available 01/13/2023 Are You Passively Exposed To Smoke? Yes Information not available 02/02/2023 Are There Any Smokers In Your House? Yes [email or web address] Information not available 02/02/2023 How Much Tobacco Do You Smoke? 1 PPD [id number].030 [id number] Information not available 01/13/2023 Do You Use Sunscreen Routinely? Yes [email or web address] Information not available 02/02/2023 Do You Have Any Dietary Restrictions? No [email or web address] Information not available 02/02/2023 Sex: Unknown Functional Status Question Answer Note LastModified by Organizat ion Details LastModified Time What is your level of alcohol consumption? Occasional [id number] Information not available 01/13/2023 Do you or have you ever used smokeless tobacco? 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 Never used electronic cigarettes [id number] Information not available 01/13/2023 What is your exercise level? Occasional [id number] 026 Information not available 01/13/2023 Mental Status Question Answer Note LastModified by Organization D etails LastModified Time Do you feel stressed (tense, restless, nervous, or anxious, or unable to sleep at night)? [id number] [email or web address] Information not available 02/02/2023 Family History Relationship Description Onset Age of this Age Resolved Age Notes LastModified by Organization Details LastModified Time Father Hypertensive disorder [id number] [id number] Not available 01/13/2023 23:06:24 Father Diabetes mellitus MIGRATION.565 [id number] Not available 01/13/2023 23:06:25 Father Family history of malignant neoplasm MIGRATION.269 [id number] Not available 01/13/2023 23:06:25 Father Myocardial infarction 62 multip le - had for 10-12 years before MIGRATION.561 [id number] Not available 01/13/2023 23:06:25 Father Malignant tumor of kidney MIGRATION.090 [id number] Not available 01/13/2023 23:06:25 Paternal Grandfather Family history of malignant neoplasm [id number].145 [id number] Not available 01/13/2023 23:06:25 Mother Hypertensive disorder MIGRATION.887 [id number] Not available 01/13/2023 23:06:25 Medical History Condition Response NO SIGNIFICANT PAST MEDICAL HISTORY Y Past Encounters Encounter ID Performer Location Encounter Start Date Encounter Closed Date Diagnosis/Indication Diagnosis SNOMED-CT Code Diagnosis ICD10 Code Diagnosis Note [id number] Jovanni Sánchez MD [facility] Sarabjit padgett [facility] [place] [address] 04/29/2021 00:00:00 04/29/2021 12:33:11 [id number] [facility] Sarabjit padgett [facility] [place] [address] 12/15/2021 00:00:00 12/15/2021 10:00:51 [id number] S[facility] Sarabjit padgett [facility] [place] [address] 08/13/2022 00:00:00 08/13/2022 15:05:42 [id number] Hunter Schafer MD [facility] [address] [place] [address] 09/17/2022 00:00:00 09/17/2022 13:21:44 [id number] Jovanni Sánchez MD [facility] Sarabjit padgett [facility] [place] [address] 10/07/2022 00:00:00 10/12/2022 13:47:29 [id number] Bobo Mcdonnell MD [address] [address] 02/02/2023 14:52:14 02/02/2023 15:37:47 Vitamin B12 deficiency (non anemic) 56212172 E53.8 Cough 07417583 R05.9 Smoker 48461719 F17.200 Erectile dysfunction 860 538334 F52.21 Bronchitis 90812857 J40 Fatigue 70415170 R53.83 [id number] Bobo Mcdonnell MD [address] [address] 03/04/2023 10:13:41 03/04/2023 10:38:56 Adult health examination 557694744 Z00.00 Fatigue 63908025 R53.83 Erectile dysfunction 860 268650 F52.21 Obesity 530432163 E66.9 Impacted c erumen of bilateral ears 2882703378 317455 H61.23 Smoker 53926650 F17.200 Serum santiago min B12 below reference range 236129735 R79.89 [id number] Bobo Mcdonnell MD [address] [address] 03/23/2023 09:54:34 03/23/2023 10:35:14 [id number] Bobo Mcdonnell MD [address] [address] 03/25/2023 10:15:58 03/25/2023 10:51:03 Impacted cerumen of bilateral ears 5479665517 552277 H61.23 Fatigue 18389941 R53.83 Erectile dysfunction 860 949438 F52.21 Obesity 156073486 E66.9 Vitamin D deficiency 347 60639 E55.9 Hypertriglyceridemia 302 259088 E78.2 Health Concerns Section Related Observation LastModified by Organization Detai ls LastModified Time None Recorded Concern Status LastModified by Organization Details LastModified Time None Recorded Advance Directives Directive N: Payers Insurance Date Sequence Insurance Name Policy Number Policy Vera Covered Member ID Vera Member ID Guarantor Name 01/29/2024 1 [facility] (MEDICAID REPLACEMENT - HMO) [id number] Mana Saucedo [id number] Mana Saucedo 06/03/2023 [facility] Mana Saucedo SELF SELF Mana Saucedo Notes Date Note Type Note Provider Name and Address Organization Details Recorded Time 02/02/2023 text/html New pt visit:ACV: 37 yo M is here to establish his care. Pt was seeing PCP at [facility] in the past. C/o ED for last few months. Pt wants to try a med for it. C/o cough, congestion, fatigue, drainage for last 4 days. Pt denies any known sick contact/covid concerns. Smoking ++. PMH, and SH reviewed. Bobo Mcdonnell MD [address], [place], [address], [employer] 02/02/2023 15:27:42 03/04/2023 text/html Pt is here for his annual exam. Doing overall well. Denies any new concerns. C/o ED for last few months. Pt wants to try a med for it. Smoking ++. PMH, FH and SH reviewed. Bobo Mcdonnell MD [address], [place], [address], [employer] 03/04/2023 10:52:46 03/25/2023 text/html Pt is here for f/u on his annual labs and b/l ear flushing. Doing overall well. Denies any new concerns. Pt has not used ear drops and he is in [place] to go back to his work. C/o ED for last few months. Pt wants to try a med for it. Smoking ++. Bobo Mcdonnell MD [address], [place], [address], [employer] 03/25/2023 10:37:33
--- OUTSIDE RECORDS SUMMARY | 2025-04-27 11:52 | XMS_ITS | Clinical Summary ---
Author Organization [facility] Address [address] [place] [address] Phone Care Team Providers Care Recruiting Assistant Name Role Phone Emmett Carias MD Primary Care Provider [phone] Social History Tobacco Use Types Packs/Day Years Used Date Smoking Tobacco: Never Assessed Sex and Gender Information Value Date Recorded Sex Assigned at Not on file Legal Sex Male 5:42 PM CDT Gender Identity Not on file Sexual Orientation Not on file Plan of Treatment Health Maintenance Due Date Last Done Comments Hepatitis C Virus (HCV) Screening 1985 TdaP Immunization 1985 Human Papillomavirus (HPV) Immunization (1 - Male 3-dose series) 02/28/1999 Hepatitis B Immunization (1 of 3 - 19+ 3-dose series) 02/28/2003 SARS-COV-2 Immunization ( - 2023- season) 2024 Influenza Immunization (Seas on Ended) 2025 Respiratory Syncytial Virus (RSV) Immunization (Adult) (1 - 1-dose 75+ series) 02/28/2059 Meningococcal Immunization (ACWY) Aged Out No longer eligible based on patient's age to complete this topic Pneumococcal Immunization Combined Aged Out No longer eligible based on patient's age to complete this topic Rotavirus Immunization Aged Out No lo nger eligible based on patient's age to complete this topic Care Teams Recruiting Assistant Relationship Specialty Start Date End Date Emmett Carias MD [address] [place] [address] [place] [address] PCP - General Family Medicine 06/30/17
[2025-04-27 11:55] VITALS: BP 155/72; PULSE 89; RESP 16; TEMP 37; O2SAT 98
--- NOTE | 2025-04-27 12:39 | ED.URI ---
HPI - URI/Sore Throat General Chief Complaint: Upper Respiratory Infection Stated Complaint: Ear Problem/Chest Congestion/Sore Throat Time Seen by Provider: 04/27/25 12:05 Source: patient and RN notes reviewed Mode of arrival: ambulatory Limitations: no limitations History of Present Illness HPI Narrative: Patient presents today with a 3 day history of chest congestion, cough, right ear pain, pressure, and muffling. He has tried ibuprofen and DayQuil without much relief. 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 He is a smoker. Related Data Allergies Allergy/AdvReac Type Severity Reaction Status Date / Time No Known Allergies Allergy Mild Verified 08/16/24 17:02 Review of Systems Review of Systems: CONSTITUTIONAL: Denies body aches, fever, chills, or sweats. EYES: Denies visual changes, redness, or discharge. ENT: Denies rhinorrhea, sore throat, or otalgia.+ right ear muffling and pain CARDIOVASCULAR: Denies chest pain, palpitations, or edema. RESPIRATORY: Denies dyspnea.+ cough, chest congestion GASTROINTESTINAL: Denies abdominal pain, nausea, vomiting, or diarrhea. GENITOURINARY: Denies dysuria or hematuria. SKIN: Denies rash, itching, or wounds. MUSCULOSKELETAL: Denies back pain, joint pain, or myalgia. NEUROLOGIC: Denies headache, numbness, tingling, or weakness. PSYCH: Denies depression or anxiety. [facility] Past Medical History Medical History Dislocation of right knee Elevated cholesterol Social History Social History Smoking packs per day: 1 Smoking cigarettes per day: 20.0 Smoking status: Current every day smoker Alcohol intake: current Alcohol use details: rare social Substance use type: does not use Living arrangements: with family Gender identity (if verbalized by the patient): Male Comments At time of signature, I have reviewed and agree with nursing past medical, surgical, social and family history unless otherwise noted. Please see nursing chart for further information. There is no relevant family history pertinent to the presenting complaint Exam Narrative: GENERAL: Well-appearing, well-nourished, and in no acute distress. HEAD: Normocephalic, atraumatic. EYES: EOMI. No redness or drainage. Conjunctivae normal. ENT: Mucous membranes pink and moist. Nares mildly congested. No rhinorrhea. TMs occluded with excessive cerumen. See procedure note. Throat normal. Uvula midline. NECK: Normal AROM. Supple. No lymphadenopathy. CHEST: No respiratory distress. Clear to auscultation. Frequent dry cough noted. HEART: Regular rate and rhythm. No murmur appreciated. EXTREMITIES: Normal range of motion. No edema. SKIN: Warm, dry, no rash. Capillary refill normal. Normal skin turgor. NEURO: No focal deficits. Alert and oriented x3. Gait steady. PSYCH: Normal affect. No signs of depression or anxiety. Course Course Level of Care: Express Care Visit Vital Signs Vital signs: Vital Signs Temperature 98.6 F 04/27/25 11:55 Pulse Rate 89 04/27/25 11:55 Respiratory Rate 16 04/27/25 11:55 Blood Pressure 155/72 H 04/27/25 11:55 Pulse Oximetry 98 04/27/25 11:55 Oxygen Delivery Room Air 04/27/25 11:55 Temperature 98.6 F 04/27/25 11:55 Pulse Rate 89 04/27/25 11:55 Respiratory Rate 16 04/27/25 11:55 Blood Pressure 155/72 H 04/27/25 11:55 Pulse Oximetry 98 04/27/25 11:55 Oxygen Delivery Room Air 04/27/25 11:55 Reviewed Procedures Ear Wax Removal Both Ears: Ear Wax Removal Date: 04/27/25 Ear Wax Removal Time: 12:40 Results: Re-examined: cerumen removed completely TM Examination: other (Suppurative material behind right TM that is erythematous and bulging. Left TM normal.) Ear Canal Exam: atraumatic Patient Tolerated Procedure: well Complications: no problems Technique: ear canal irrigated (Left) and ear canal curetted (Bilateral) MDM - URI/Sore Throat MDM Narrative Medical decision making narrative: Cerumen removed from both ears. It was noted that patient had a right otitis media after cerumen removal. Prescription for Augmentin sent to pharmacy for otitis media. Chest auscultation clear. Prescription for prednisone sent to pharmacy for bronchitis. Anticipatory guidance given. Differential Diagnosis Differential diagnosis: Likely upper respiratory infection, otitis media, viral infection, bronchitis and other (Cerumen impaction) Critical Care Time Critical Care Time Critical Care Time: No Discharge Plan Discharge Clinical Impression: Bronchitis, Acute suppur right otitis media w/o spontan rupture tympanic membrane, Excessive cerumen in both ear canals Patient Disposition: Home Condition: Stable Instructions: Ear Infection (GEN), Acute Bronchitis (ED) Additional Instructions: The excessive ear wax has been removed from both of your ears. Upon examination of your right ear drum, your found to have an infection. Please take the Augmentin as prescribed until gone. Please take the prednisone for your cough. Rest and stay hydrated. Take Tylenol or ibuprofen for pain. Use your home albuterol inhaler if needed. Follow-up with your PCP next week if symptoms are not improving. Go to the ER if symptoms worsen to include shortness of breath, difficulty swallowing. Your blood pressure was elevated above 120/80 today at Urgent Care. This puts you above the threshold for follow up. Please schedule a followup visit with your personal physician as soon as possible, for further evaluation and treatment. Even blood pressure exceeding 120/80 may indicate pre-hypertension. Patient Language: Serbian Prescriptions: New prednisone 50 mg tablet 50 mg PO DAILY 5 Days Qty: 5 0RF amoxicillin-pot clavulanate 875-125 mg tablet 1 tablet PO Q12H 7 Days Qty: 14 0RF Follow-up/Referrals: UNKNOWN,DOCTOR [Primary Care Provider] - Time of Disposition: 12:43
== END 2025-04-27 12:48 | disposition home or self-care (01) ==
PROVIDERS: Emergency Provider Nurse Practitioner
DX: J40 Bronchitis, not specified as acute or chronic (principal); H66.001 Acute suppurative otitis media without spontaneous rupture of ear drum, right ear; H61.23 Impacted cerumen, bilateral; F17.210 Nicotine dependence, cigarettes, uncomplicated; E78.00 Pure hypercholesterolemia, unspecified
CPT/HCPCS: 69210; 99213; A9270; G0463

== ENCOUNTER 2025-05-02 16:24 | Emergency (ER) | payer BC, SELFPAY ==
[2025-05-02 16:28] VITALS: BP 135/77; PULSE 104; RESP 20; TEMP 36.4; O2SAT 97
--- NOTE | 2025-05-02 16:53 | ED_ITS ---
HPI - Ear Problem General Chief complaint: Ear Stated complaint: Left Ear Pain Time Seen by Provider: 05/02/25 16:46 Source: patient and RN notes reviewed Mode of arrival: ambulatory Limitations: no limitations History of Present Illness HPI Narrative: Patient presents today complaining of some muffling to the right ear. He was seen here at [facility] 5 days ago and had bilateral cerumen impactions and subsequent discs impactions. Subsequent right otitis media was found and he had been placed on prednisone and Augmentin. Today is his last day of prednisone any as 2 more days of Augmentin. He continues to have some muffling to the right ear and wanted to be evaluated. Related Data Allergies Allergy/AdvReac Type Severity Reaction Status Date / Time No Known Allergies Allergy Mild Verified 08/16/24 17:02 Review of Systems Review of Systems: CONSTITUTIONAL: Denies body aches, fever, chills, or sweats. EYES: Denies visual changes, redness, or discharge. ENT: Denies rhinorrhea, congestion, sore throat. + right ear muffling CARDIOVASCULAR: Denies chest pain, palpitations, or edema. RESPIRATORY: Denies cough or dyspnea. GASTROINTESTINAL: Denies abdominal pain, nausea, vomiting, or diarrhea. GENITOURINARY: Denies dysuria or hematuria. SKIN: Denies rash, itching, or wounds. MUSCULOSKELETAL: Denies back pain, joint pain, or myalgia. NEUROLOGIC: Denies headache, numbness, tingling, or weakness. PSYCH: Denies depression or anxiety. PMF[facility] Past Medical History Medical History (Reviewed 05/02/25 @ 16:55 by Cassandra Baxter, [facility], ) Dislocation of right knee Elevated cholesterol Social History Social History (Reviewed 05/02/25 @ 16:55 by Cassandra Baxter, [facility], ) Smoking packs per day: 1 Smoking cigarettes per day: 20.0 Smoking status: Current every day smoker Alcohol intake: current Alcohol use details: rare social Substance use type: does not use Living arrangements: with family Gender identity (if verbalized by the patient): Male Comments At time of signature, I have reviewed and agree with nursing past medical, surgical, social and family history unless otherwise noted. Please see nursing chart for further information. There is no relevant family history pertinent to the presenting complaint Exam Narrative: GENERAL: Well-appearing, well-nourished, and in no acute distress. HEAD: Normocephalic, atraumatic. EYES: EOMI. No redness or drainage. Conjunctivae normal. ENT: Mucous membranes pink and moist. Left TM and canal normal. Right TM and canal normal. Infection has resolved. NECK: Normal AROM. CHEST: No respiratory distress. EXTREMITIES: Normal range of motion. No edema. SKIN: Warm, dry, no rash. Capillary refill normal. Normal skin turgor. NEURO: No focal deficits. Alert and oriented x3. Gait steady. PSYCH: Normal affect. No signs of depression or anxiety. Course Course Level of Care: Express Care Visit Vital Signs Vital signs: Vital Signs Temperature 97.5 F L 05/02/25 16:28 Pulse Rate 104 H 05/02/25 16:28 Respiratory Rate 20 05/02/25 16:28 Blood Pressure 135/77 05/02/25 16:28 Pulse Oximetry 97 05/02/25 16:28 Oxygen Delivery Room Air 05/02/25 16:28 Temperature 97.5 F L 05/02/25 16:28 Pulse Rate 104 H 05/02/25 16:28 Respiratory Rate 20 05/02/25 16:28 Blood Pressure 135/77 05/02/25 16:28 Pulse Oximetry 97 05/02/25 16:28 Oxygen Delivery Room Air 05/02/25 16:28 Reviewed Medical Decision Making MDM Narrative Medical decision making narrative: Patient's right otitis media has resolved. Recommend he continue out the last 2 days of his Augmentin. Suggest Flonase or Sudafed to help with the muffling with ENT follow-up if it does not resolve in the next couple of weeks. Patient agrees with plan. Anticipatory guidance given. Differential Diagnosis Differential Diagnosis: Otitis media, otitis externa, ruptured TM, serous otitis Vital Signs Vital Signs: Vital Signs Temperature 97.5 F L 05/02/25 16:28 Pulse Rate 104 H 05/02/25 16:28 Respiratory Rate 05/02/25 16:28 Blood Pressure 135/77 05/02/25 16:28 Pulse Oximetry 97 05/02/25 16:28 Oxygen Delivery Room Air 05/02/25 16:28 Temperature 97.5 F L 05/02/25 16:28 Pulse Rate 104 H 05/02/25 16:28 Respiratory Rate 20 05/02/25 16:28 Blood Pressure 135/77 05/02/25 16:28 Pulse Oximetry 97 05/02/25 16:28 Oxygen Delivery Room Air 05/02/25 16:28 Critical Care Time Critical Care Time Critical Care Time: No Discharge Plan Discharge Clinical Impression: Decreased hearing of right ear Patient Disposition: Home Condition: Stable Additional Instructions: Continue the Augmentin until finished. You may try some Flonase or Sudafed to help with your muffled hearing. Follow-up with an ear nose and throat doctor if symptoms do not improve. Your blood pressure was elevated above 120/80 today at Urgent Care. This puts you above the threshold for follow up. Please schedule a followup visit with your personal physician as soon as possible, for further evaluation and treatment. Even blood pressure exceeding 120/80 may indicate pre-hypertension. Patient Language: Beninese Prescriptions: No Action prednisone 50 mg tablet 50 mg PO DAILY 5 Days Qty: 5 0RF amoxicillin-pot clavulanate 875-125 mg tablet 1 tablet PO Q12H 7 Days Qty: 14 0RF Follow-up/Referrals: Rik Bentley MD [Physician] - PHYSICIAN,POSITION DESCRIPTION MANAGER [Primary Care Provider] - Time of Disposition: 16:57
--- OUTSIDE RECORDS SUMMARY | 2025-05-02 17:41 | XMS_ITS | Clinical Summary ---
Author Organization [facility] Address [address] [place] [address] Phone Care Team Providers Care Turbo Electric Operator Name Role Phone Emmett Carias MD Primary Care Provider [phone] Social History Tobacco Use Types Packs/Day Years [...] age to complete this topic Care Teams Turbo Electric Operator Relationship Specialty Start Date End Date Emmett Carias MD [address] [place] [address] [place] [id number] PCP - General Family Medicine 06/30/17
--- OUTSIDE RECORDS SUMMARY | 2025-05-02 17:42 | XMS_ITS | Data Portability ---
Author Organization [facility], Main Office Address [address] [place] [id number] Care Team Providers Care Ball Assembler Name Role Phone BOBO MCDONNELL Primary Care Provider [phone] Assessment Encounter Date Assessment Date Assessment LastModified [...] ED if any concerns. F/u as directed. Not available 02/02/2023 15:26:52 03/04/2023 03/04/2023 39 [...] on next visit. Annual labs in 03/08. [email or web address] Not available 03/04/2023 10:52:35 03/25/2023 03/25/2023 39 [...] Lipids in 07/07. Annual labs in 03/08. [email or web address] Not available 03/25/2023 10:36:53 Plan of Treatment Reminders Order Date Submit Date Provider Last Modified By Organization Details Last Modified Time Details Appointments None recorded. Lab lipid panel, serum 2022 023 [email or web address] [facility] (Lab), [address] [place], [address], 3 08:33:49 testosteron e, free + total, serum [address] [facility] (Lab), [address] [place], [address], 3 15:09:01 CMP, serum or plasma [address] [facility] (Lab), [address] [place], [address], 3 14:05:27 CBC w/ auto diff [address] [facility] (Lab), [address] [place], [address], 3 14:01:18 lipid panel, blood 2022 023 [email or web address] [facility] (Lab), [address] [place], [address], 3 09:00:01 TSH, serum, reflex free T4 [address] (Lab), [address] [place], [address], 3 09:00:20 PSA, serum or plasma [address] (Lab), [address] [place], [address], 3 09:00:36 urinalysis complete, reflex culture [address] (Lab), [address] [place], [address], 3 09:00:54 magnesium, serum or plasma [address] [facility] (Lab), [address] [place], [address], 3 14:07:12 vitamin D, 25-hydroxy, total, serum [address] (Lab), [address] [place], [address], 3 09:01:12 glycohemogl obin, total, blood [address] [facility] (Lab), [address] [place], [address], 3 17:43:51 vitamin B12 + folate, serum or blood [address] (Lab), [address] [place], [address], 3 12:02:19 Referral None recorded. Procedures None recorded. Surgeries None recorded. Imaging XR, chest, 2 view 2022 023 [facility], [address] [place] [address] , [place], [address], 3 17:00:27 Medication Orders fenofibrate 160 mg tablet 2022 023 [facility] #[id number], [address], [place], [place], [id number], 3 10:27:07 ergocalcife rol (vitamin D2) 1,250 mcg (50,000 unit) capsule 2022 023 [facility] #49655, [address], [place], [id number], 3 10:27:06 nicotine 21 mg/24 hr daily transdermal patch 2022 023 [facility] #79034, [address], [place], [place], [id number], 3 10:28:04 azithromyci n 250 mg tablet [address] [facility]11160, [address], [place], [id number], 3 10:24:38 Medrol (Braxton) 4 mg tablets in a dose pack [address] [facility] #68200, [address], [place], [id number], 3 10:24:46 albuterol sulfate HFA 90 mcg/actuati on aerosol inhaler 2022 023 [facility] #76663, [address], [place], [id number], 3 15:13:44 sildenafil 50 mg tablet 2022 023 [place] [facility] #08147, [address], [place], [place], [id number], 3 15:13:47 benzonatate 200 mg capsule 2022 023 [email or web address] [facility] #81772, [address], [place], [place], [id number], 3 10:24:41 Patient TargetsNo targets recorded. Patient Instructions Encounter Date Encounter Id Patient Instructions Last Modified By Organization Details Last Modified Time 03/04/2023 [id number] When You Want to Lose Weight: Care Instructions [email or web address] Not available 03/04/2023 10:29:50 starting a weigh t loss plan: care instructions [email or web address] Not available 03/04/2023 10:29:50 03/25/2023 [id number] When You Want to Lose Weight: Care Instructions [email or web address] Not available 03/25/2023 10:22:31 starting a weigh t loss plan: care instructions [email or web address] Not available 03/25/2023 10:22:31 Reason for Referral None Reported. Results Created Date Observation Date Name Description Value Unit Range Abnormal Flag Note LastModifiedBy Organization Detail LastModifiedTime 09/17/2009/17/2022 urina lysis , dipst ick Leukocytes (reference range: negative tenzin/ l) Negati ve Not Available [facility] [address], [address], [address], 09/17/2022 12:03:57 09/17/2009/17/2022 urina lysis , dipst ick Nitrite (reference rage: negative mg/dl) negati ve Not Available [facility] [address], [address], [address], 09/17/2022 12:03:57 09/17/20 22 09/17/2022 urina lysis , dipst ick Urobilinogen (reference range: 0.2-1 mg/dl) 0.2 Not Available [address], [address], 09/17/2022 12:03:57 09/17/20 22 09/17/2022 urina lysis , dipst ick Protein (reference range: negative mg/dl) Negati ve Not Available [address], [address], 09/17/2022 12:03:57 09/17/20 22 09/17/2022 urina lysis , dipst ick pH (reference range: 5-7) 5.5 Not Available [address], [address], 09/17/2022 12:03:57 09/17/20 22 09/17/2022 urina lysis , dipst ick Blood (reference range: negative Sammy/ l) Negati ve Not Available [address], [address], 09/17/2022 12:03:57 09/17/20 22 09/17/2022 urina lysis , dipst ick Specific Vest (reference range: 1.005-1.030) 1.030 Not Available [address], [address], 09/17/2022 12:03:57 09/17/20 22 09/17/2022 urina lysis , dipst ick Ketone (reference range: negative mg/dl) Negati ve Not Available [facility] [address] [place] [address], [address], 09/17/2022 12:03:57 09/17/20 22 09/17/2022 urina lysis , dipst ick Bilirubin (reference range: negative mg/dl) Negati ve Not Available [address], [address], 09/17/2022 12:03:57 09/17/20 22 09/17/2022 urina lysis , dipst ick Glucose (reference range: negative mg/dl) Negati ve Not Available [address], [address], 09/17/2022 12:03:57 09/17/20 22 09/17/2022 urina lysis , dipst ick Appearance Clear Not Available [address], [address], 09/17/2022 12:03:57 09/17/20 22 09/17/2022 urina lysis , dipst ick Color Yellow Not Available [address], [address], 09/17/2022 12:03:57 03/23/20 23 03/23/2023 CBC/C OMPLE TE BLD COUNT W/DIF F white blood cells 10.6 x10'3 /uL 4.2-10 .8 Not Available [facility] ([facility]) [address] [place] [address], [address], 03/23/2023 14:01:18 05/0903/23/2023 CBC/C OMPLE TE BLD COUNT W/DIF F red blood cells 4.86 x10'6 /uL 4.10-5 .80 Not Available [facility] (Lab) [address] [place], [address], 03/23/2023 14:01:18 03/23/20 23 03/23/2023 CBC/C OMPLE TE BLD COUNT W/DIF F hemoglobin 14.4 g/dL 13.2-1 7.0 Not Available [facility] (Lab) [address] [place], [address], 03/23/2023 14:01:18 03/23/2003/23/2023 CBC/C OMPLE TE BLD COUNT W/DIF F hematocrit 42.7 % 39.3-5 0.0 Not Available [facility] (Lab) [address] [place], [address], 03/23/2023 14:01:18 03/23/2003/23/2023 CBC/C OMPLE TE BLD COUNT W/DIF F mean red cell volume 87.9 fL 80.0-9 7.0 Not Available [facility] (Lab) [address] [place], [address], 03/23/2023 14:01:18 03/23/2003/23/2023 CBC/C OMPLE TE BLD COUNT W/DIF F mean red cell hemoglobin 29.6 pg 27.0-3 3.0 Not Available [facility] (Lab) [address] [place], [address], 03/23/2023 14:01:18 03/23/2003/23/2023 CBC/C OMPLE TE BLD COUNT W/DIF F mean RBC HGB concentratio n 33.7 g/dL 31.0-3 6.0 Not Available [facility] (Lab) [address] [place], [address], 03/23/2023 14:01:18 03/23/20 23 03/23/2023 CBC/C OMPLE TE BLD COUNT W/DIF F red cell distribution width 12.5 % 11.8-1 5.5 Not Available [facility] (Lab) [address] [place], [address], 03/23/2023 14:01:18 03/23/20 23 03/23/2023 CBC/C OMPLE TE BLD COUNT W/DIF F platelets 253 x10'3 /uL 150-40 0 Not Available [facility] (Lab) [address] [place], [address], 03/23/2023 14:01:18 03/23/2003/23/2023 CBC/C OMPLE TE BLD COUNT W/DIF F mean platelet volume 11.2 fL 9.0-12 .4 Not Available [facility] (Lab) [address] [place], [address], 03/23/2023 14:01:18 03/23/2003/23/2023 CBC/C OMPLE TE BLD COUNT W/DIF F neutrophils 57.3 % 39.0-7 2.0 Not Available [facility] (Lab) [address] [place], [address], 03/23/2023 14:01:18 03/23/2003/23/2023 CBC/C OMPLE TE BLD COUNT W/DIF F lymphocytes 31.6 % 16.0-4 7.0 Not Available [facility] (Lab) [address] [place], [address], 03/23/2023 14:01:18 03/23/2003/23/2023 CBC/C OMPLE TE BLD COUNT W/DIF F monocytes 10.0 % 5.0-12 .0 Not Available [facility] (Lab) [address] [place], [address], 03/23/2023 14:01:18 03/23/20 23 03/23/2023 CBC/C OMPLE TE BLD COUNT W/DIF F eosinophils 0.1 % 1.0-7. 0 low Not Available [facility] (Lab) [address] [place], [address], 03/23/2023 14:01:18 03/23/20 23 03/23/2023 CBC/C OMPLE TE BLD COUNT W/DIF F basophils 0.2 % 0.0-2. 0 Not Available [facility] (Lab) [address] [place], [address], 03/23/2023 14:01:18 03/23/2003/23/2023 CBC/C OMPLE TE BLD COUNT W/DIF F immature granulocytes 0.8 % 0.00-0 .50 high Not Available [facility] (Lab) [address] [place], [address], 03/23/2023 14:01:18 03/23/20 23 03/23/2023 CBC/C OMPLE TE BLD COUNT W/DIF F neutrophils, absolute count 6.07 x10'3 /uL 1.5-8. 0 Not Available [facility] (Lab) [address] [place], [address], 03/23/2023 14:01:18 03/23/2003/23/2023 CBC/C OMPLE TE BLD COUNT W/DIF F lymphocytes, absolute count 3.34 x10'3 /uL 1.07-3 .43 Not Available [facility] (Lab) [address] [place], [address], 03/23/2023 14:01:18 03/23/2003/23/2023 CBC/C OMPLE TE BLD COUNT W/DIF F monocytes, absolute count 1.06 x10'3 /uL 0.29-0 .99 high Not Available [facility] (Lab) [address] [place], [address], 03/23/2023 14:01:18 03/23/20 23 03/23/2023 CBC/C OMPLE TE BLD COUNT W/DIF F eosinophils, absolute count 0.01 x10'3 /uL 0.02-0 .53 low Not Available [facility] (Lab) [address] [place], [address], 03/23/2023 14:01:18 03/23/20 23 03/23/2023 CBC/C OMPLE TE BLD COUNT W/DIF F basophils, absolute count 0.02 x10'3 /uL 0.01-0 .08 Not Available [facility] (Lab) [address] [place], [address], 03/23/2023 14:01:18 03/23/20 23 03/23/2023 CBC/C OMPLE TE BLD COUNT W/DIF F immature granulocytes ,absolute 0.08 x10'3 /uL 0.00-0 .05 high Not Available [facility] (Lab) [address] [place], [address], 03/23/2023 14:01:18 03/23/20 23 03/23/2023 CBC/C OMPLE TE BLD COUNT W/DIF F nucleated red blood cells 0.0 % -[address] [facility] (Lab) [address] [place], [address], 03/23/2023 14:01:18 03/23/20 23 03/23/2023 CBC/C OMPLE TE BLD COUNT W/DIF F NRBC# 0.00 x10'3 /uL Not Available [facility] (Lab) [address] [place], [address], 03/23/2023 14:01:18 03/23/20 23 03/23/2023 COMPR EHENS GREG METAB OLIC PANEL sodium 136 mmol/ L 137-14 5 low Not Available [facility] (Lab) [address] [place], [address], 03/23/2023 14:05:26 03/23/20 23 03/23/2023 COMPR EHENS GREG METAB OLIC PANEL potassium 4.5 mmol/ L 3.5-5. 1 Not Available [facility] (Lab) [address] [place], [address], 03/23/2023 14:05:26 03/23/20 23 03/23/2023 COMPR EHENS GREG METAB OLIC PANEL chloride 104 mmol/ L 98-107 Not Available [facility] (Lab) [address] [facility] [place], [address], 03/23/2023 14:05:26 03/23/20 23 03/23/2023 COMPR EHENS GREG METAB OLIC PANEL carbon dioxide 20 mmol/ L 22-30 low Not Available [facility] (Lab) [address] [place], [address], 03/23/2023 14:05:26 03/23/20 23 03/23/2023 COMPR EHENS GREG METAB OLIC PANEL anion gap 16.5 mmol/ L 14-22 Not Available [facility] (Lab) [address] [place], [address], 03/23/2023 14:05:26 03/23/20 23 03/23/2023 COMPR EHENS GREG METAB OLIC PANEL glucose 106 mg/dL 70-99 high Not Available [facility] (Lab) [address] [place], [address], 03/23/2023 14:05:26 03/23/20 23 03/23/2023 COMPR EHENS GREG METAB OLIC PANEL BUN 9 mg/dL 8-19 Not Available [facility] (Lab) [address] [place], [address], 03/23/2023 14:05:26 03/23/20 23 03/23/2023 COMPR EHENS GREG METAB OLIC PANEL creatinine 0.62 mg/dL 0.66-1 .25 low Not Available [facility] (Lab) [address] [place], [address], 03/23/2023 14:05:26 03/23/20 23 03/23/2023 COMPR EHENS GREG METAB OLIC PANEL GFR >60 Refer ence Range : [place] ge GFR Healt hy Adult : >60 [...] or ethni c subgr oups, such as Hishi nics. Outsi de the valid ated erin [...] calcu lator is avail able on the [facility] websi te: https ://ww w.kid suzanne.o rg/pr ofess ional s/kdo qi/gf r_cal culat or Not Available [facility] (Lab) [address] [place], [address], 03/23/2023 14:05:26 03/23/20 23 03/23/2023 COMPR EHENS GREG METAB OLIC PANEL alkaline phosphatase 62 U/L 38-126 Not Available [facility] (Lab) [address] [place], [address], 03/23/2023 14:05:26 03/23/20 23 03/23/2023 COMPR EHENS GREG METAB OLIC PANEL alanine aminotransfe rase 29 U/L 0-[address] [facility] (Lab) [address] [place], [address], 03/23/2023 14:05:26 03/23/20 23 03/23/2023 COMPR EHENS GREG METAB OLIC PANEL aspartate aminotransfe rase 30 U/L 15-[address] [facility] (Lab) [address] [place], [address], 03/23/2023 14:05:26 03/23/20 23 03/23/2023 COMPR EHENS GREG METAB OLIC PANEL bilirubin, total 0.70 mg/dL 0.20-1 .30 Not Available [facility] (Lab) [address] [place], [address], 03/23/2023 14:05:26 03/23/20 23 03/23/2023 COMPR EHENS GREG METAB OLIC PANEL calcium 9.4 mg/dL 8.4-10 .2 Not Available [facility] (Lab) [address] [place], [address], 03/23/2023 14:05:26 03/23/20 23 03/23/2023 COMPR EHENS GREG METAB OLIC PANEL total protein 6.6 g/dL 6.3-8. 2 Not Available [facility] (Lab) [address] [place], [address], 03/23/2023 14:05:26 03/23/20 23 03/23/2023 COMPR EHENS GREG METAB OLIC PANEL albumin 4.0 g/dL 3.4-5. 0 Not Available [facility] (Lab) [address] [place], [address], 03/23/2023 14:05:26 03/23/20 23 03/23/2023 COMPR EHENS GREG METAB OLIC PANEL globulin 2.6 g/dL 2.6-4. 2 Not Available [facility] (Lab) [address] [place], [address], 03/23/2023 14:05:26 03/23/20 23 03/23/2023 COMPR EHENS GREG METAB OLIC PANEL A/G ratio 1.5 ratio 1.0-2. 0 Not Available [facility] (Lab) [address] [place], [address], 03/23/2023 14:05:26 03/23/20 23 03/23/2023 MAGNE SIUM magnesium 1.8 mg/dL 1.6-2. 3 Not Available [facility] (Lab) [address] [place], [address], 03/23/2023 14:07:12 03/23/20 23 03/23/2023 VITAM IN D 25-HY DROXY [id number] 21.0 NG/mL 30-100 low Vitam in D Statu s: Defic ient: <20 ng/mL Insuf ficie nt: 20-29 ng/mL Suffi cient : 30-10 0 ng/mL Not Available [facility] (Lab) [address] [place], [address], 03/23/2023 14:22:28 03/23/20 23 03/23/2023 URINA LYSIS COMPL ETE/I RIS W/RFX color YELLOW Not Available [facility] (Lab) [address] [place], [address], 03/23/2023 14:22:43 03/23/20 23 03/23/2023 URINA LYSIS COMPL ETE/I RIS W/RFX appear CLEAR Not Available [facility] (Lab) [address] [place], [address], 03/23/2023 14:22:43 03/23/20 23 03/23/2023 URINA LYSIS COMPL ETE/I RIS W/RFX specific gravity 1.021 1.001- 1.030 Not Available [facility] (Lab) [address] [place], [address], 03/23/2023 14:22:43 03/23/20 23 03/23/2023 URINA LYSIS COMPL ETE/I RIS W/RFX pH 5.0 pH_un its 5.0-9. 0 Not Available [facility] (Lab) [address] [place], [address], 03/23/2023 14:22:43 03/23/20 23 03/23/2023 URINA LYSIS COMPL ETE/I RIS W/RFX leukocytes NEGATI VE tenzin/u L negati ve- Not Available [facility] (Lab) [address] [place], [address], 03/23/2023 14:22:43 03/23/20 23 03/23/2023 URINA LYSIS COMPL ETE/I RIS W/RFX nitrite NEGATI VE negati ve- Not Available [facility] (Lab) [address] [place], [address], 03/23/2023 14:22:43 03/23/20 23 03/23/2023 URINA LYSIS COMPL ETE/I RIS W/RFX protein 10 mg/dL negati ve- abnormal Not Available [facility] (Lab) [address] [place], [address], 03/23/2023 14:22:43 03/23/20 23 03/23/2023 URINA LYSIS COMPL ETE/I RIS W/RFX glucose NORMAL mg/dL normal - Not Available [facility] (Lab) [address] [place], [address], 03/23/2023 14:22:43 03/23/20 23 03/23/2023 URINA LYSIS COMPL ETE/I RIS W/RFX ketones NEGATI VE mg/dL negati ve- Not Available [facility] (Lab) [address] [place], [address], 03/23/2023 14:22:43 03/23/20 23 03/23/2023 URINA LYSIS COMPL ETE/I RIS W/RFX urobilinogen NORMAL mg/dL normal - Not Available [facility] (Lab) [address] [place], [address], 03/23/2023 14:22:43 03/23/20 23 03/23/2023 URINA LYSIS COMPL ETE/I RIS W/RFX bilirubin NEGATI VE mg/dL negati ve- Not Available [facility] (Lab) [address] [facility] [place], [address], 03/23/2023 14:22:43 03/23/20 23 03/23/2023 URINA LYSIS COMPL ETE/I RIS W/RFX blood NEGATI VE mg/dL negati ve- Not Available [facility] (Lab) [address] [place], [address], 03/23/2023 14:22:43 03/23/20 23 03/23/2023 URINA LYSIS COMPL ETE/I RIS W/RFX white blood cells 0-8 /i??h pfi?? 0-8 Not Available [facility] (Lab) [address] [place], [address], 03/23/2023 14:22:43 03/23/20 23 03/23/2023 URINA LYSIS COMPL ETE/I RIS W/RFX red blood cells 0-4 /i??h pfi?? 0-4 Not Available [facility] (Lab) [address] [place], [address], 03/23/2023 14:22:43 03/23/2003/23/2023 URINA LYSIS COMPL ETE/I RIS W/RFX bacteria NONE Not Available [facility] (Lab) [address] [place], [address], 03/23/2023 14:22:43 03/23/20 23 03/23/2023 URINA LYSIS COMPL ETE/I RIS W/RFX mucous FEW /i??l pfi?? abnormal Not Available [facility] (Lab) [address] [place], [address], 03/23/2023 14:22:43 03/23/20 23 03/23/2023 URINA LYSIS COMPL ETE/I RIS W/RFX squamous epithelial OCCASI ONAL /i??l pfi?? abnormal Not Available [facility] (Lab) [address] [place], [address], 03/23/2023 14:22:43 03/23/20 23 03/23/2023 LIPID PANEL cholesterol 179 mg/dL 140-19 9 NIH EUGENE NSUS RECOM MENDA TION FOR GEETHA STERO L: ADULT CHILD LOW RISK: <200 <170 BORDE RLINE : <200- 239 ----- HIGH RISK: >240 >200 Not Available [facility] (Lab) [address] [place], [address], 03/23/2023 14:23:29 03/23/2003/23/2023 LIPID PANEL triglyceride s 367 mg/dL 0-150 high NIH EUGENE NSUS REPOR T RECOM MENDA TION FOR TRIGL YCERI ELIZA: ADULT CHILD LOW RISK: <150 ----- BODER LINE: 150-1 99 ----- HIGH RISK: >200 ----- Not Available [facility] (Lab) [address] [place], [address], 03/23/2023 14:23:29 03/23/20 23 03/23/2023 LIPID PANEL HDL cholesterol 24 mg/dL 40- low Not Available [facility] (Lab) [address] [place], [address], 03/23/2023 14:23:29 03/23/2003/23/2023 LIPID PANEL LDL cholesterol, [...] WILL NOT BE REPOR CHAUNCEY. Not Available [facility] (Lab) [address] [place], [address], 03/23/2023 14:23:29 03/23/20 23 03/23/2023 TSH W/REF ALLEN FT4 TSH with reflex free T4 0.840 uIU/m L 0.465- 4.680 Not Available [facility] (Lab) [address] [place], [address], 03/23/2023 14:39:07 03/23/20 23 03/23/2023 PSA, TOTAL PSA, total 0.46 NG/mL 0.00-4 .00 Not Available [facility] (Lab) [address] [place], [address], 03/23/2023 14:39:11 03/23/20 23 03/23/2023 HEMOG LOBIN A1C HA1C 5.5 % 4.0-6. 0 Diabe gi Scree crystal Crite enedelia: <5.7% Consi stent with absen ce of diabe gi 5.7-6 .4% Consi stent with incre ased risk for diabe gi (pred iabet es) >OR=6 .5% Consi stent with diabe gi REFER ENCE: Diabe gi Care 2016, 39(Rosas ppl.1 ):s13 -s22 Not Available [facility] (Lab) [address] [place], [address], 03/23/2023 17:43:51 03/23/20 23 03/27/2023 TESTO STERO [...] . JCEM 2017, 102;1 161-1 173. PMID: 79396 103. Not Available [facility] (Lab) [address] [place], [address], 03/27/2023 15:09:01 03/23/20 23 03/27/2023 TESTO STERO NE, FREE+ TOTAL LC/MS testosterone , free 4.75 NG/dL 5.00-2 1.00 low Not Available [facility] (Lab) [address] [place], [address], 03/27/2023 15:09:01 03/23/20 23 03/27/2023 TESTO STERO NE, FREE+ TOTAL LC/MS % free testosterone 1.74 % 1.50-4 .20 Perfo rmed at: [facility] [address] [email or web address] [facility] [place] [address] Lab Direc tor: Monica felix MD, Phone : [phone] Not Available [facility] (Lab) [address] [place], [address], 03/27/2023 15:09:01 09/25/20 22 09/24/2022 CT, abdom en + pelvi s, w/o contr ast No observ ation record ed. [id number] [facility] Add On Lab Orders [address] [place], [address], 01/13/2023 23:10:35 03/01/20 23 XR, chest , [facility] [address] [facility] [place] [address] [phone] Trinidad escalante Name: VANCE VEGA Access ion #: [id number] Sex: M : 1984 5 Locati [...] 2 view chest. Page 1 of 2 [facility] Trinidad escalante Name: VANCE VEGA Access ion #: [id number] Sex: M : 1984 5 Exam Date: 9:17 AM Exam Name: XR CHEST 2V Admitt ing Diagno sis(es ): Create d and electr onical ly signed by: Ralph wilcox MD Signed Date: 3:57 PM (CT) Dictat ed by: Ralph wilcox MD DD: 3:57 PM (CT) DT: 3:57 PM (CT) Page 2 of 2 [facility] (Imaging) [address] [place] [address], [id number], 03/04/2023 10:22:35 Result Notes Documentation Provider Name and Address Organization Details Recorded Time Xr, Chest, 2 View : [facility] [address] [place] [address] Patient Name: MANA SAUCEDO Sex: M : 1985 Location: [facility] Attending Physician: BOBO MCDONNELL Ordering Physician: BOBO [...] 2 view chest. Page 1 of 2 [facility] Patient Name: MANA SAUCEDO Sex: M : 1985 Exam Date: 03/01/2023 9:17 AM Exam Name: XR CHEST 2V Admitting Diagnosis(es): Created and electronically signed by: Ralph King MD Signed Date: 03/01/2023 3:57 PM (CT) Dictated by: Ralph King MD (CT) (CT) Page 2 of 2 Bobo Mcdonnell MD [address], [address], [facility] [employer] [facility] 03/04/2023 10:22:35 Problems Name Problem SNOMED Code Status Onset Date Resolution Date Notes Provider Name and Address Organization Details Recorded Time Serum vitamin B12 below reference range 388780863 Active 2020 Not Available [facility] 3 23:08:07 Hypertrigl yceridemia 875758666 Active 2020 Not Available [facility] 3 23:08:07 Blood in urine 45561752 Active 2020 Not Available [facility] 3 23:08:07 Obesity 525339769 Active 2021 Not Available [facility] 3 23:08:07 History of calculus of kidney 141478779 Active 2020 Not Available [facility] 3 23:08:07 Smoker 68069633 Active 2021 Not Available [facility] 3 23:08:07 Vitamin B12 deficiency (non anemic) 99900992 Active 2022 Bobo Mcdonnell MD [address], [place], [address] , [employer] [facility] 3 15:06:50 Cough 50039473 Active 2022 Bobo Mcdonnell MD [address], [place], [address] , [employer] [facility] 3 15:07:12 Erectile dysfunctio n 965760937 Active 2022 Bobo Mcdonnell MD [address], [place], [address] , [employer] 3 15:08:06 Bronchitis 27253040 Active 2022 Bobo Mcdonnell MD [address], [place], [address] , [employer] 3 15:10:31 Fatigue 02035532 Active 2022 Bobo Mcdonnell MD [address], [place], [address] , [employer] [facility] 3 15:27:11 Impacted cerumen of bilateral ears 2710747993776 108 Active 2022 Bobo Mcdonnell MD [address], [place], [address] , [employer] [facility] 3 10:25:51 Vitamin D deficiency 25582879 Active 2022 Bobo Mcdonnell MD [address], [place], [address] , [employer] 3 10:25:56 Problem Notes None recorded. Procedures Surgical History Date Name Laterality Status Provider Name and Address Organization Details Recorded Time 3 Smoking Cessation completed Bobo Mcdonnell MD [address], [place], [address], [facility] [employer] [facility] 03/04/2023 10:23:08 3 Smoking Cessation completed Bobo Mcdonnell MD [address], [place], [address], [facility] [employer] [facility] 02/02/2023 15:22:12 Imaging Results None recorded. Procedure [...] /min 86 /min Bobo Mcdonnell MD [address] [facility] [address], [place], [address], [facility] 02/02/2023 15:20:27 Date Recorded Body height Body mass index (BMI) Body weight Body temperature Oxygen saturation Oxygen saturation in Arterial blood by Pulse oximetry Systolic blood pressure Diastolic blood pressure Provider Name and Address Organization Details Last Updated DateTime 3 185.42 cm 41.4 kg/m2 484991 g 97.9 [degF] 98 % 98 % 142 mm[Hg] 78 mm[Hg] Elaine Sanabria RN [facility] [employer] 3 15:03:09 Date Recorded Body height Body mass index (BMI) Body weight Body temperature Heart rate Oxygen saturation Oxygen saturation in Arterial blood by Pulse oximetry Respiratory rate Systolic blood pressure Diastolic blood pressure Provider Name and Address Organization Details Last Updated DateTime 3 185.42 cm 41 kg/m2 832366. 23 g 97.7 [degF] 96 /min 98 % 98 % 16 /min 130 mm[Hg] 74 mm[Hg] MICAH Drummond - [facility] [employer] 3 10:18:54 Date Recorded Body height Body mass index (BMI) Body weight Body temperature Heart rate Oxygen saturation Oxygen saturation in Arterial blood by Pulse oximetry Respiratory rate Systolic blood pressure Diastolic blood pressure Provider Name and Address Organization Details Last Updated DateTime 3 185.42 cm 41.3 kg/m2 204744. 41 g 97.5 [degF] 88 /min 98 % 98 % 16 /min 128 mm[Hg] 82 mm[Hg] [facility] [facility] 3 10:20:45 Social History Question Answer Notes LastModified by Organization Details LastModified Time Tobacco Smoking Status Current Every Day Smoker Not Available [facility] 01/13/2023 23:05:44 Do You Have An Advance Directive? No [email or web address] Information not available 02/02/2023 What Is Your Level Of Caffeine Consumption? Heavy [email or web address].0301 [id number] Information not available 01/13/2023 How Much Tobacco Do You Chew? None [id number].0301 [id number] Information not available 01/13/2023 What Type Of Diet Are You Following? REGULAR [email or web address] Information not available 02/02/2023 Which Illicit Or Recreational Drugs Have You Used? None MIGRATION.0301 [id number] Information not available 01/13/2023 What Is The Highest Grade Or Level Of School You Have Completed Or The Highest Degree You Have Received? II60678-3 [email or web address] Information not available 02/02/2023 Have There Been Any Changes To Your Family Or Social Situation? Yes Just [email or web address] Information not available 02/02/2023 Do You Use Insect Repellent Routinely? Yes [email or web address] Information not available 02/02/2023 Where Do You Live? SingleLevelHouse Information not available 02/02/2023 Do You Have A Medical Power Of Finishing Department Supervisor? No [email or web address] Information not available 02/02/2023 What Was The Date Of Your Most Recent Tobacco Screening? 09/17/2022 [email or web address].0301 [id number] Information not available 01/13/2023 Do You Have Any Pets? Yes 3 Cats And Dog [email or web address] Information not available 02/02/2023 What Is Your Relationship Status? [email or web address] Information not available 02/02/2023 Do You Use Your Seat Belt Or Car Seat Routinely? Yes [email or web address] Information not available 02/02/2023 Do You Have Smoke And Carbon Monoxide Detectors In Your Home? Yes [email or web address] Information not available 02/02/2023 At What Age Did You Start Smoking Tobacco? 20 MIGRATION.0301 [id number] Information not available 01/13/2023 Are You Passively Exposed To Smoke? Yes [email or web address] Information not available 02/02/2023 Are There Any Smokers In Your House? Yes [email or web address] Information not available 02/02/2023 How Much Tobacco Do You Smoke? 1 PPD MIGRATION.030 [id number] Information not available 01/13/2023 Do You Use Sunscreen Routinely? Yes Information not available 02/02/2023 Do You Have Any Dietary Restrictions? No [email or web address] Information not available 02/02/2023 Sex: Unknown Functional Status Question Answer Note LastModified by Organizat ion Details LastModified Time What is your level of alcohol consumption? Occasional [id number] Information not available 01/13/2023 Do you or have you ever used smokeless tobacco? 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 Never used electronic cigarettes MIGRATION.1080225 026 Information not available 01/13/2023 What is your exercise level? Occasional MIGRATION.[id number] 026 Information not available 01/13/2023 Mental Status Question Answer Note LastModified by Organization D etails LastModified Time Do you feel stressed (tense, restless, nervous, or anxious, or unable to sleep at night)? [id number] [email or web address] Information not available 02/02/2023 Family History Relationship Description Onset Age of this Age Resolved Age Notes LastModified by Organization Details LastModified Time Father Hypertensive disorder MIGRATION.010 [id number] Not available 01/13/2023 23:06:24 Father Diabetes mellitus MIGRATION.886 [id number] Not available 01/13/2023 23:06:25 Father Family history of malignant neoplasm MIGRATION.441 [id number] Not available 01/13/2023 23:06:25 Father Myocardial infarction 62 multip le - had for 10-12 years before MIGRATION.651 [id number] Not available 01/13/2023 23:06:25 Father Malignant tumor of kidney MIGRATION.666 [id number] Not available 01/13/2023 23:06:25 Paternal Grandfather Family history of malignant neoplasm MIGRATION.503 [id number] Not available 01/13/2023 23:06:25 Mother Hypertensive disorder MIGRATION.089 [id number] Not available 01/13/2023 23:06:25 Medical History Condition Response NO SIGNIFICANT PAST MEDICAL HISTORY Y Past Encounters Encounter ID Performer Location Encounter Start Date Encounter Closed Date Diagnosis/Indication Diagnosis SNOMED-CT Code Diagnosis ICD10 Code Diagnosis Note [id number] Jovanni Sánchez MD [facility] Sarabjit padgett [facility] [place] [address] 04/29/2021 00:00:00 04/29/2021 12:33:11 [id number] [facility] Sarabjit padgett [facility] [place] [address] 12/15/2021 00:00:00 12/15/2021 10:00:51 [id number] S[facility] Sarabjit padgett [facility] [place] [address] 08/13/2022 00:00:00 08/13/2022 15:05:42 [id number] Hunter Schafer MD [facility] [id number] [place] [address] 09/17/2022 00:00:00 09/17/2022 13:21:44 [id number] Jovanni Sánchez MD [facility] Sarabjit padgett [facility] [place] [address] 10/07/2022 00:00:00 10/12/2022 13:47:29 [id number] Bobo Mcdonnell MD [address] [address] 02/02/2023 14:52:14 02/02/2023 15:37:47 Vitamin B12 deficiency (non anemic) 29340625 E53.8 Cough 30427265 R05.9 Smoker 37976881 F17.200 Erectile dysfunction 860 366569 F52.21 Bronchitis 91909380 J40 Fatigue 06955808 R53.83 [id number] Bobo Mcdonnell MD [address] [address] 03/04/2023 10:13:41 03/04/2023 10:38:56 Adult health examination 384282564 Z00.00 Fatigue 31859181 R53.83 Erectile dysfunction 860 596176 F52.21 Obesity 756022565 E66.9 Impacted c erumen of bilateral ears 8253435900 875761 H61.23 Smoker 87368381 F17.200 Serum santiago min B12 below reference range 523864600 R79.89 [id number] Bobo Mcdonnell MD [address] [address] 03/23/2023 09:54:34 03/23/2023 10:35:14 [id number] Bobo Mcdonnell MD [address] [address] 03/25/2023 10:15:58 03/25/2023 10:51:03 Impacted cerumen of bilateral ears 2571640268 593792 H61.23 Fatigue 99643195 R53.83 Erectile dysfunction 860 096924 F52.21 Obesity 486869956 E66.9 Vitamin D deficiency 347 27361 E55.9 Hypertriglyceridemia 302 188255 E78.2 Health Concerns Section Related Observation LastModified by Organization Detai ls LastModified Time None Recorded Concern Status LastModified by Organization Details LastModified Time None Recorded Advance Directives Directive N: Payers Insurance Date Sequence Insurance Name Policy Number Policy Vera Covered Member ID Vera Member ID Guarantor Name 01/29/2024 1 [facility] (MEDICAID REPLACEMENT - HMO) [id number] Mana Saucedo [id number] Mana Saucedo 06/03/2023 [facility] Mana Sauecdo SELF SELF Mana Saucedo Notes Date Note [...] and SH reviewed. Bobo Mcdonnell MD [address], [place], [address], [employer] 02/02/2023 15:27:42 03/04/2023 text/html Pt is here for his annual exam. Doing overall well. Denies any new concerns. C/o ED for last few months. Pt wants to try a med for it. Smoking ++. PMH, FH and SH reviewed. Bobo Mcdonnell MD [address], [place], [address], [employer] 03/04/2023 10:52:46 03/25/2023 text/html Pt is here for f/u on his annual labs and b/l ear flushing. Doing overall well. Denies any new concerns. Pt has not used ear drops and he is in [place] to go back to his work. C/o ED for last few months. Pt wants to try a med for it. Smoking ++. Bobo Mcdonnell MD [address], [place], [address], [employer] 03/25/2023 10:37:33
--- OUTSIDE RECORDS SUMMARY | 2025-05-02 17:42 | XMS_ITS | CONTINUITY OF CARE DOCUMENT ---
Author Name caden negrete Address Unknown Organization [facility] Address [address] [place] [address] [address] [place] [address] Phone [phone] Care Team Providers Care Form Block Maker Name Role Phone Tricia Patterson MD Unavailable LISA THOMAS Unavailable LISA THOMAS Unavailable [phone] PROBLEMS Condition Status Date Provider Notes Hyperlipidemia active Rajesh Khanna Tobacco abuse active Rajesh Khanna Palpitations active Rajesh Khanna INSURANCE PROVIDERS Payer name Policy type / Coverage type [place] red alliance party ID [facility] [id number]
== END 2025-05-02 17:01 | disposition home or self-care (01) ==
PROVIDERS: Emergency Provider Nurse Practitioner
DX: H91.91 Unspecified hearing loss, right ear (principal); F17.210 Nicotine dependence, cigarettes, uncomplicated; E78.00 Pure hypercholesterolemia, unspecified
CPT/HCPCS: 99211; G0463